=== PATIENT | female | born 2005 | race Caucasian/White ===

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

== ENCOUNTER 2023-02-03 17:25 | Emergency (ER) | payer MEDICAID, SELFPAY ==
[2023-02-03 17:29] VITALS: BP 135/93; PULSE 102; RESP 18; TEMP 36.7; O2SAT 98
--- OUTSIDE RECORDS SUMMARY | 2023-02-03 17:34 | XMS_ITS | Continuity of Care Document ---
Author Name Unknown Organization [facility] Address [address] [place] [id number] Encounter [facility] NBR [id number] Date(s): 01/19/23 - 01/19/[address] [address]- Encounter Diagnosis Viral pharyngitis(Discharge Diagnosis) - 01/19/23 Discharge Disposition: Home or Self Care Attending Physician: Elizabeth Haider MD Admitting Physician: Elizabeth Haider MD Allergies, Adverse Reactions, Alerts Substance Reaction Severity Status amoxicillin Moderate Active Functional Status 01/19/23 Other exposure to Infectious Disease COV ID-19 Symptoms Present Medications No Known Medications Mental Status 01/19/23 Eye Opening Response Nino Spontaneous ly Best Verbal Response Nino Oriented Best Motor Response Nino Obeys comman ds Nino Coma Score 15 Results Laboratory List Name Date Strep A ([facility]) 01/19/23 SARS-CoV-2 (Covid-19) AG ([facility]) POCT Most recent to oldest [Reference Range]: 1 Streptococcus A -[facility] [Not Detected ] Not Detected (01/19/23 9:26 PM) SARS-CoV or CoV-2 (COVID-19) Ag ([facility]) [Negative] Negative (01/19/23 8:07 PM) Employed in healthcare? Unknown *NA* (01/19/23 8:07 PM) Symptomatic as defined by CDC? Unknown *NA* (01/19/23 8:07 PM) Date of onset (Lab) Unknown *NA* (01/19/23 8:07 PM) Hospitalized due to COVID-19? Unknown *NA* (01/19/23 8:07 PM) In ICU? Unknown *NA* (01/19/23 8:07 PM) Group care resident? Unknown *NA* (01/19/23 8:07 PM) status? Unknown *NA* (01/19/23 8:07 PM) Vital Signs Most recent to oldest [Reference Range]: 1 Temperature Temporal Artery [36-38 Deg C ] 36.0 Deg C (01/19/23 9:00 PM) Peripheral Pulse Rate [60-100 bpm] 85 bp m (01/19/23 9:00 PM) Respiratory Rate [12-24 br/min] 20 br/mi n (01/19/23 9:00 PM) Blood Pressure [90-140/60-90 mmHg] 128/8 8mmHg (01/19/23 9:00 PM) Weight Dosing 83.91 kg (01/19/23 9:18 PM) Weight Estimated 83.91 kg (01/19/23 9:00 PM) Height/Length Dosing 160.000 cm (01/19/23 9:18 PM) Height/Length Estimated 160.000 cm (01/19/23 9:00 PM) Social History Social History Type Response Tobacco Never tobacco user T obacco Use:. Sex Hospital Discharge Instructions Patient Education 01/19/2023 21:28:02 Pharyngitis Pharyngitis Pharyngitis is inflammation of the throat (pharynx). It is a very common cause of sore throat. Pharyngitis can be caused by a bacteria, but it is usually caused by a virus. Most cases of pharyngitis get better on their own without treatment. What are the causes? This condition may be caused by: ??? Infection by viruses (viral). Viral pharyngitis spreads easily from person to person (is contagious) through coughing, sneezing, and sharing of personal items or utensils such as cups, forks, spoons, and toothbrushes. ??? Infection by bacteria (bacterial). Bacterial pharyngitis may be spread by touching the nose or face after coming in contact with the bacteria, or through close contact, such as kissing. ??? Allergies. Allergies can cause buildup of mucus in the throat (post-nasal drip), leading to inflammation and irritation. Allergies can also cause blocked nasal passages, forcing breathing throughthe mouth, which dries and irritates the throat. What increases the risk? You are more likely to develop this condition if: ??? You are 5???24 years old. ??? You are exposed to crowded environments such as daycare, school, or dormitory living. ??? You live in a cold climate. ??? You have a weakened disease-fighting (immune) system. What are the signs or symptoms? Symptoms of this condition vary by the cause. Common symptoms of this condition include: ??? Sore throat. ??? Fatigue. ??? Low-grade fever. ??? Stuffy nose (nasal congestion) and cough. ??? Headache. Other symptoms may include: ??? Glands in the neck (lymph nodes) that are swollen. ??? Skin rashes. ??? Plaque-like film on the throat or tonsils. This is often a symptom of bacterial pharyngitis. ??? Vomiting. ??? Red, itchy eyes (conjunctivitis). ??? Loss of appetite. ??? Joint pain and muscle aches. ??? Enlarged tonsils. How is this diagnosed? This condition may be diagnosed based on your medical history and a physical exam. Your health careprovider will ask you questions about your illness and your symptoms. A swab of your throat may be done to check for bacteria (rapid strep test). Other lab tests may also be done, depending on the suspected cause, but these are rare. How is this treated? Many times, treatment is not needed for this condition. Pharyngitis usually gets better in 3???4 days without treatment. Bacterial pharyngitis may be treated with antibiotic medicines. Follow these instructions at home: Medicines ??? Take uini-kbf-kldqmyb and prescription medicines only as told by your health care provider. ??? If you were prescribed an antibiotic medicine, take it as told by your health care provider. Donot stop taking the antibiotic even if you start to feel better. ??? Use throat sprays to soothe your throat as told by your health care provider. ??? Children can get pharyngitis. Do not give your child aspirin because of the association with Araseli's syndrome. Managing pain To help with pain, try: ??? Sipping warm liquids, such as broth, herbal tea, or warm water. ??? Eating or drinking cold or frozen liquids, such as frozen ice pops. ??? Gargling with a mixture of salt and water 3???4 times a day or as needed. To make salt water, completely dissolve ?1 tsp (3???6 g) of salt in 1 cup (237 mL) of warm water. ??? Sucking on hard candy or throat lozenges. ??? Putting a cool-mist humidifier in your bedroom at night to moisten the air. ??? Sitting in the bathroom with the door closed for 5???10 minutes while you run hot water in the shower. General instructions ??? Do not use any products that contain nicotine or tobacco. These products include cigarettes, chewing tobacco, and vaping devices, such as e-cigarettes. If you need help quitting, ask your health care provider. ??? Rest as told by your health care provider. ??? Drink enough fluid to keep your urine pale yellow. How is this prevented? To help prevent becoming infected or spreading infection: ??? Wash your hands often with soap and water for at least 20 seconds. If soap and water are not available, use hand cryolite recovery operator. ??? Do not touch your eyes, nose, or mouth with unwashed hands, and wash hands after touching theseareas. ??? Do not share cups or eating utensils. ??? Avoid close contact with people who are sick. Contact a health care provider if: ??? You have large, tender lumps in your neck. ??? You have a rash. ??? You cough up green, yellow-brown, or bloody mucus. Get help right away if: ??? Your neck becomes stiff. ??? You drool or are unable to swallow liquids. ??? You cannot drink or take medicines without vomiting. ??? You have severe pain that does not go away, even after you take medicine. ??? You have trouble breathing, and it is not caused by a stuffy nose. ??? You have new pain and swelling in your joints such as the knees, ankles, wrists, or elbows. These symptoms may represent a serious problem that is an emergency. Do not wait to see if the symptoms will go away. Get medical help right away. Call your local emergency services (911 in the [place] Do not drive yourself to the hospital. Summary ??? Pharyngitis is redness, pain, and swelling (inflammation) of the throat (pharynx). ??? While pharyngitis can be caused by a bacteria, the most common causes are viral. ??? Most cases of pharyngitis get better on their own without treatment. ??? Bacterial pharyngitis is treated with antibiotic medicines. This information is not intended to replace advice given to you by your health care provider. Make sure you discuss any questions you have with your health care provider. Document Revised: 01/16/2022 Document Reviewed: 01/16/2022 [employer] Patient Education ?? 2021 [employer] Follow Up Care 01/19/2023 21:00:48 With:primary care physician Address: When:3 to 5 days Emergency department Discharge instructions * Elizabeth Haider MD: PERFORM Event Display: ED Discharge Information Authored Date: [id number] MARISA MELI M :2005 Age:17 years Sex:Female Visit Date:01/19/2023 Discharge Instructions We would like to thank you for allowing us to assist you with your healthcare needs. The following includes patient education materials and information regarding your injury/illness. Diagnosis from Today's Visit Viral pharyngitis Discharge Vitals Temperature??(Temporal Artery) 96.8 ??F (36.0 ??C) Heart Rate??(Peripheral) 85 Respiratory Rate?? 20 Blood Pressure?? 128/88?? Height?? 62.99 in (160.000 cm) Weight??(Estimated) 185.02 lb (83.91 kg) Allergies amoxicillin What to Do Next You Need to Schedule the Following Appointments Follow Up with??primary care physician When:??Within 3 to 5 days You were treated today on an emergency basis; it may be palomino to contact your primary care provider to notify them of your visit today. You may have been referred to your regular doctor or a specialist, please follow up as instructed. If your condition worsens or you can't get in to see the doctor, contact the Emergency Department. Education Materials Pharyngitis Pharyngitis is inflammation of the throat (pharynx). It is a very common cause of sore throat. Pharyngitis can be caused by a bacteria, but it is usually caused by a virus. Most cases of pharyngitis get better on their own without treatment. What are the causes? This condition may be caused by: ? Infection by viruses (viral). Viral pharyngitis spreads easily from person to person (is contagious) through coughing, sneezing, and sharing of personal items or utensils such as cups, forks, spoons,and toothbrushes. ? Infection by bacteria (bacterial). Bacterial pharyngitis may be spread by touching the nose or faceafter coming in contact with the bacteria, or through close contact, such as kissing. ? Allergies. Allergies can cause buildup of mucus in the throat (post-nasal drip), leading to inflammation and irritation. Allergies can also cause blocked nasal passages, forcing breathing through themouth, which dries and irritates the throat. What increases the risk? You are more likely to develop this condition if: ? You are 5???24 years old. ? You are exposed to crowded environments such as daycare, school, or dormitory living. ? You live in a cold climate. ? You have a weakened disease-fighting (immune) system. What are the signs or symptoms? Symptoms of this condition vary by the cause. Common symptoms of this condition include: ? Sore throat. ? Fatigue. ? Low-grade fever. ? Stuffy nose (nasal congestion) and cough. ? Headache. Other symptoms may include: ? Glands in the neck (lymph nodes) that are swollen. ? Skin rashes. ? Plaque-like film on the throat or tonsils. This is often a symptom of bacterial pharyngitis. ? Vomiting. ? Red, itchy eyes (conjunctivitis). ? Loss of appetite. ? Joint pain and muscle aches. ? Enlarged tonsils. How is this diagnosed? This condition may be diagnosed based on your medical history and a physical exam. Your health careprovider will ask you questions about your illness and your symptoms. A swab of your throat may be done to check for bacteria (rapid strep test). Other lab tests may also be done, depending on the suspected cause, but these are rare. How is this treated? Many times, treatment is not needed for this condition. Pharyngitis usually gets better in 3???4 days without treatment. Bacterial pharyngitis may be treated with antibiotic medicines. Follow these instructions at home: Medicines ? Take cczt-whj-xwupkrk and prescription medicines only as told by your health care provider. ? If you were prescribed an antibiotic medicine, take it as told by your health care provider. Do notstop taking the antibiotic even if you start to feel better. ? Use throat sprays to soothe your throat as told by your health care provider. ? Children can get pharyngitis. Do not give your child aspirin because of the association with Araseli'ssyndrome. Managing pain To help with pain, try: ? Sipping warm liquids, such as broth, herbal tea, or warm water. ? Eating or drinking cold or frozen liquids, such as frozen ice pops. ? Gargling with a mixture of salt and water 3???4 times a day or as needed. To make salt water, completely dissolve ?1 tsp (3???6 g) of salt in 1 cup (237 mL) of warm water. ? Sucking on hard candy or throat lozenges. ? Putting a cool-mist humidifier in your bedroom at night to moisten the air. ? Sitting in the bathroom with the door closed for 5???10 minutes while you run hot water in the shower. General instructions ? Do not use any products that contain nicotine or tobacco. These products include cigarettes, chewing tobacco, and vaping devices, such as e-cigarettes. If you need help quitting, ask your health careprovider. ? Rest as told by your health care provider. ? Drink enough fluid to keep your urine pale yellow. How is this prevented? To help prevent becoming infected or spreading infection: ? Wash your hands often with soap and water for at least 20 seconds. If soap and water are not available, use hand cryolite recovery operator. ? Do not touch your eyes, nose, or mouth with unwashed hands, and wash hands after touching these areas. ? Do not share cups or eating utensils. ? Avoid close contact with people who are sick. Contact a health care provider if: ? You have large, tender lumps in your neck. ? You have a rash. ? You cough up green, yellow-brown, or bloody mucus. Get help right away if: ? Your neck becomes stiff. ? You drool or are unable to swallow liquids. ? You cannot drink or take medicines without vomiting. ? You have severe pain that does not go away, even after you take medicine. ? You have trouble breathing, and it is not caused by a stuffy nose. ? You have new pain and swelling in your joints such as the knees, ankles, wrists, or elbows. These symptoms may represent a serious problem that is an emergency. Do not wait to see if the symptoms will go away. Get medical help right away. Call your local emergency services (911 in the [place] Do not drive yourself to the hospital. Summary ? Pharyngitis is redness, pain, and swelling (inflammation) of the throat (pharynx). ? While pharyngitis can be caused by a bacteria, the most common causes are viral. ? Most cases of pharyngitis get better on their own without treatment. ? Bacterial pharyngitis is treated with antibiotic medicines. This information is not intended to replace advice given to you by your health care provider. Make sure you discuss any questions you have with your health care provider. Document Revised: 01/16/2022 Document Reviewed: 01/16/2022 [employer] Patient Education ?? 2021 [employer] Tests Performed Medications and Immunizations Administered Given ibuprofen, 600 mg, Oral Lab Test Name Test Result Date/Time SARS-CoV or CoV-2 (COVID-19) Ag ([facility]) Negative 01/19/2023 20:07 EDT Employed in healthcare? Unknown 01/19/2023 20:07 EDT Symptomatic as defined by CDC? Unknown 01/19/2023 20:07 EDT Date of onset (Lab) Unknown 01/19/2023 20:07 EDT Hospitalized due to COVID-19? Unknown 01/19/2023 20:07 EDT In ICU? Unknown 01/19/2023 20:07 EDT Group care resident? Unknown 01/19/2023 20:07 EDT status? Unknown 01/19/2023 20:07 EDT Patient/Radiotelephone Operator Signature Patient Name:MELI CUNNINGHAM I have received this information and my questions have been answered. Patient/Radiotelephone Operator Name: Patient/Radiotelephone Operator Signature: Relationship to Patient: Witness Name/Signature: Date: Electronically Signed on: 01/19/2023 22:28 EDTSigned by:GALDINO Patient Care team information Care Team Personnel Name: Elizabeth Haider MD Position: Physician Member Role: ED Physician Address: Address: [address] [place] [address] Name: Ayla George Position: Nurse Member Role: ED Nurse Care Team Related Persons Name: REGINO CUNNINGHAM
--- OUTSIDE RECORDS SUMMARY | 2023-02-03 17:34 | XMS_ITS | Continuity of Care Document ---
Author Name Unknown Organization [facility] Address [address] [place] [id number] Encounter [facility] FIN NBR [id number] Date(s): 10/14/22 - 10/14/[address] [phone] Encounter Diagnosis Ureteral stone(Discharge Diagnosis) - 10/14/22 Discharge Disposition: Home or Self Care Attending Physician: Elizabeth Haider MD Admitting Physician: Elizabeth Haider MD Allergies, Adverse Reactions, Alerts Substance Reaction Severity Status amoxicillin Moderate Active Medications Depo-Provera 0 Refill(s) Start Date: 10/14/22 Status: Ordered Flomax 0.4 mg oral capsule 0.4 mg = 1 cap, Oral, Daily, # 30 cap, 0 Refill(s) Start Date: 10/14/22 Status: Ordered Results Laboratory List Name Date CBC w/o Diff 10/14/22 Comprehensive Metabolic Panel (CMP) 10/03 12/25 Test Urine Qual 10/14/22 Urinalysis Microscopic 10/14/22 Urinalysis with Micro if Indicated and C ulture if Indicated 10/14/22 Most recent to oldest [Reference Range]: 1 WBC [4.8-10.8 K/mcL] 6.3 K/mcL (10/14/22 10:11 AM) RBC [4.20-6.10 Million/mcL] 5.58 Million /mcL (10/14/22 10:11 AM) BUN [8-26 mg/dL] 13 mg/dL (10/14/22 10:11 AM) UA Color [Yellow] Yellow (10/14/22 10:11 AM) UA WBC [0-3] 0-3 (10/14/22 10:11 AM) Glucose Level [74-106 mg/dL] 105 mg/dL (10/14/22 10:11 AM) Potassium Level [3.5-5.1 mmol/L] 3.7 mmo l/L (10/14/22 10:11 AM) MCV [80.0-99.0 fL] 83.0 fL (10/14/22 10 AM) UA Urobilinogen [0.2] 0.2 (10/14/22 10: AM) UA Bili [Negative] Negative (10/14/22 AM) UA Ketones [Negative] Negative (10/14/22 10:11 AM) AST [15-41 IntlUnit/L] 17 IntlUnit/L (10/14/22 10: AM) ALT [14-54 IntlUnit/L] 20 IntlUnit/L (10/14/22 10 AM) MCHC [32.0-36.0 g/dL] 33.0 g/dL (10/14/22: AM) Osmolality [275-295 mOsm/kg] 278 mOsm/kg (10/14/22 10:11 AM) Sodium Level [134-143 mmol/L] 139 mmol/L (10/14/22 10:11 AM) UA RBC [0-3] >=100 *ABN* (10/14/22 AM) UA Leuk Est [Negative] Negative (10/14/22 10:11 AM) UA Nitrite [Negative] Negative (10/14/22: AM) UA Glucose [Negative] Negative (10/14/22 AM) Hct [37.0-52.0 %] 46.3 % (10/14/22 10:11 AM) UA Bacteria [None Seen] None Seen (10/14/22 AM) Calcium Level [8.9-10.3 mg/dL] 9.4 mg/dL (10/14/22 10: AM) Albumin Level [3.5-5.0 g/dL] 4.2 g/dL (10/14/22 AM) Protein Total [6.5-8.1 g/dL] 7.3 g/dL (10/14/22 10:11 AM) UA Protein [Negative] Trace *ABN* (12/12/22 10:11 AM) MCH [27.0-31.0 pg] 27.4 pg (10/14/22 10:11 AM) Bilirubin Total [0.2-1.2 mg/dL] 0.7 mg/d L (10/14/22 10:11 AM) Hgb [12.0-18.0 g/dL] 15.3 g/dL (10/14/22 10:11 AM) Alk Phos [38-130 IntlUnit/L] 46 IntlUnit /L (10/14/22 10:11 AM) UA Blood [Negative] Large *ABN* (10/14/22 10:11 AM) MPV [7.4-10.4 fL] 10.0 fL (10/14/22 10:11 AM) UA Mucous [None Seen] Present *ABN* (10/14/22 10:11 AM) UA Spec Grav >=1.030 *NA* (10/14/22 10:11 AM) Platelets [130-400 K/mcL] 281 K/mcL (10/14/22 10:11 AM) CO2 [22-32 mmol/L] 26 mmol/L (10/14/22 10:11 AM) UA Squam Epithelial [0-3] 4-6 (10/14/22 10:11 AM) UA pH 5.00 *NA* (10/14/22 10:11 AM) eGFR Non-AA 90 *NA* (10/14/22 10:11 AM) eGFR AA 90 *NA* (10/14/22 10:11 AM) UA Appear [Clear] Slightly Cloudy *ABN* (10/14/22 10:11 AM) Chloride Level [98-111 mmol/L] 104 mmol/ L (10/14/22 10:11 AM) RDW-CV [11.5-14.5 %] 12.5 % (10/14/22 10:11 AM) A/G Ratio 1.4 *NA* (10/14/22 10:11 AM) BUN/Creat Ratio [8.0-20.0] 13.8 (10/14/22 10:11 AM) Globulin 3.1 *NA* (10/14/22 10:11 AM) UA Culture Ind?. [No] No (10/14/22 10:11 AM) Urine Srce Clean Catch (10/14/22 10:11 AM) Creatinine Level [0.44-1.00 mg/dL] 0.94 mg/dL (10/14/22 10:11 AM) Anion Gap [3.0-12.0] 9.0 (10/14/22 10:11 AM) U hCG Ql [Negative] Negative (10/14/22 10:11 AM) Radiology Reports * Exam Date Time Procedure Performing Provider Status 10/14/22 11:[address] Abdomen and Pelvi s w/o Contrast Vera Rainey; Auth (Verified) Notes: (CT Abdomen and Pelvis w/o Contrast) Reason For Exam: left flank pain CT Abdomen and Pelvis w/o Contrast EXAM DESCRIPTION: CT Abdomen and Pelvis w/o Contrast 10/14/2022 INDICATION: LEFT FLANK PAIN TECHNIQUE: All CT scans at this facility use at least one of these dose optimization techniques: Automated exposure control; mA and/or kV adjustment per patient size (includes targeted exams where dose is matched to clinical indication); or iterative reconstruction. Technique: Axial CT images of the abdomen/pelvis without IV contrast administration COMPARISON: None FINDINGS: Visualized portions of the liver, spleen, pancreas and adrenal glands demonstrate a normal unenhanced CT appearance. No calcified gallstones in the gallbladder. Small obstructing calculus in the distal left ureter just proximal to the UVJ measuring approximately 2.8 mm in diameter with mild left hydronephrosis. No renal calculi on either side. No right hydronephrosis or obstructing right ureteral calculus. Normal caliber abdominal aorta. No retroperitoneal adenopathy in the abdomen or pelvis. No pelvic mass identified. No bowel dilatation to suggest obstruction or ileus. No free intraperitoneal air, ascites or inflammatory changes. Normal appendix. The visualized lung bases are clear. No suspicious regional osseous lesions. IMPRESSION: Obstructing calculus in the distal left ureter just proximal to the UVJ measuring approximately 2.8 mm in diameter with mild left hydronephrosis. JOB #: [id number] Final Signed by: Nicholas Hamm MD Signed (Electronic Signature): 10/14/2022 11:14 am Vital Signs Most recent to oldest [Reference Range]: 1 2 Temperature Temporal Artery [36-38 Deg C ] 36.4 Deg C (10/14/22 11:00 AM) 35.9 Deg C *LOW* (10/14/22 9:35 AM) Peripheral Pulse Rate [60-100 bpm] 66 bp m (10/14/22 11:00 AM) 76 bpm (10/14/22 9:35 AM) Respiratory Rate [12-24 br/min] 18 br/mi n (10/14/22 11:00 AM) 18 br/min (10/14/22 9:35 AM) Blood Pressure [90-140/60-90 mmHg] 125/8 0mmHg (10/14/22 11:00 AM) 142/62mmHg *HI* (10/14/22 9:35 AM) Weight Dosing 77.11 kg (10/14/22 9:55 AM) Weight Estimated 77.11 kg (10/14/22 9:35 AM) Height/Length Dosing 160.000 cm (10/14/22 9:55 AM) Height/Length Estimated 160.000 cm (10/14/22 9:35 AM) Social History Social History Type Response Tobacco Never tobacco user T obacco Use:. Sex Hospital Discharge Instructions Patient Education 10/14/2022 10:22:25 Kidney Stones Kidney Stones Kidney stones are solid, rock-like deposits that form inside of the kidneys. The kidneys are a pairof organs that make urine. A kidney stone may form in a kidney and move into other parts of the urinary tract, including the tubes that connect the kidneys to the bladder (ureters), the bladder, and the tube that carries urine out of the body (urethra). As the stone moves through these areas, it can cause intense pain and block the flow of urine. Kidney stones are created when high levels of certain minerals are found in the urine. The stones are usually passed out of the body through urination, but in some cases, medical treatment may be needed to remove them. What are the causes? Kidney stones may be caused by: ??? A condition in which certain glands produce too much parathyroid hormone (primary hyperparathyroidism), which causes too much calcium buildup in the blood. ??? A buildup of uric acid crystals in the bladder (hyperuricosuria). Uric acid is a chemical that the body produces when you eat certain foods. It usually exits the body in the urine. ??? Narrowing (stricture) of one or both of the ureters. ??? A kidney blockage that is present at (congenital obstruction). ??? Past surgery on the kidney or the ureters, such as gastric bypass surgery. What increases the risk? The following factors may make you more likely to develop this condition: ??? Having had a kidney stone in the past. ??? Having a family history of kidney stones. ??? Not drinking enough water. ??? Eating a diet that is high in protein, salt (sodium), or sugar. ??? Being overweight or obese. What are the signs or symptoms? Symptoms of a kidney stone may include: ??? Pain in the side of the abdomen, right below the ribs (flank pain). Pain usually spreads (radiates) to the groin. ??? Needing to urinate frequently or urgently. ??? Painful urination. ??? Blood in the urine (hematuria). ??? Nausea. ??? Vomiting. ??? Fever and chills. How is this diagnosed? This condition may be diagnosed based on: ??? Your symptoms and medical history. ??? A physical exam. ??? Blood tests. ??? Urine tests. These may be done before and after the stone passes out of your body through urination. ??? Imaging tests, such as a CT scan, abdominal X-ray, or ultrasound. ??? A procedure to examine the inside of the bladder (cystoscopy). How is this treated? Treatment for kidney stones depends on the size, location, and makeup of the stones. Kidney stones will often pass out of the body through urination. You may need to: ??? Increase your fluid intake to help pass the stone. In some cases, you may be given fluids through an IV and may need to be monitored at the hospital. ??? Take medicine for pain. ??? Make changes in your diet to help prevent kidney stones from coming back. Sometimes, medical procedures are needed to remove a kidney stone. This may involve: ??? A procedure to break up kidney stones using: ??? A focused beam of light (laser therapy). ??? Shock waves (extracorporeal shock wave lithotripsy). ??? Surgery to remove kidney stones. This may be needed if you have severe pain or have stones thatblock your urinary tract. Follow these instructions at home: Medicines ??? Take [id number] and prescription medicines only as told by your health care provider. ??? Ask your health care provider if the medicine prescribed to you requires you to avoid driving or using heavy machinery. Eating and drinking ??? Drink enough fluid to keep your urine pale yellow. You may be instructed to drink at least 8???10 glasses of water each day. This will help you pass the kidney stone. ??? If directed, change your diet. This may include: ??? Limiting how much sodium you eat. ??? Eating more fruits and vegetables. ??? Limiting how much animal protein???such as red meat, poultry, fish, and eggs???you eat. ??? Follow instructions from your health care provider about eating or drinking restrictions. General instructions ??? Collect urine samples as told by your health care provider. You may need to collect a urine sample: ??? 24 hours after you pass the stone. ??? 8???12 weeks after passing the kidney stone, and every 6???12 months after that. ??? Strain your urine every time you urinate, for as long as directed. Use the strainer that your health care provider recommends. ??? Do not throw out the kidney stone after passing it. Keep the stone so it can be tested by your health care provider. Testing the makeup of your kidney stone may help prevent you from getting kidney stones in the future. ??? Keep all follow-up visits as told by your health care provider. This is important. You may needfollow-up X-rays or ultrasounds to make sure that your stone has passed. How is this prevented? To prevent another kidney stone: ??? Drink enough fluid to keep your urine pale yellow. This is the best way to prevent kidney stones. ??? Eat a healthy diet and follow recommendations from your health care provider about foods to avoid. You may be instructed to eat a low-protein diet. Recommendations vary depending on the type of kidney stone that you have. ??? Maintain a healthy weight. Where to find more information ??? National Kidney Foundation (NKF): www.kidney.org ??? [employer] (UCF): www.urologyhealth.org Contact a health care provider if: ??? You have pain that gets worse or does not get better with medicine. Get help right away if: ??? You have a fever or chills. ??? You develop severe pain. ??? You develop new abdominal pain. ??? You faint. ??? You are unable to urinate. Summary ??? Kidney stones are solid, rock-like deposits that form inside of the kidneys. ??? Kidney stones can cause nausea, vomiting, blood in the urine, abdominal pain, and the urge to urinate frequently. ??? Treatment for kidney stones depends on the size, location, and makeup of the stones. Kidney stones will often pass out of the body through urination. ??? Kidney stones can be prevented by drinking enough fluids, eating a healthy diet, and maintaining a healthy weight. This information is not intended to replace advice given to you by your health care provider. Make sure you discuss any questions you have with your health care provider. Document Revised: 03/03/2020 Document Reviewed: 03/07/2020 [email or web address] Patient Education ?? 2021 [employer]. Follow Up Care 10/14/2022 09:35:09 With:Soledad Orlando MD Address: [address] [place] [id number] When:1 week Discharge instructions * Event Display: Discharge Instructions Physician Emergency department Note * Elizabeth Haider MD: PERFORM Event Display: ED Note Physician Authored Date: [id number] MELI CUNNINGHAM :2005 Age:17 years Sex:Female Visit Date:10/14/2022 Basic Information Time Seen: Elizabeth Haider MD / 10/14/2022 09:50 Chief Complaint left side pain for 4-5 days. ??Left flank pain with some radiation. ??On BCP unsure of LMP. constant pain History Of Present Illness: This patient is a 17-year-old female presents today for evaluation of left side pain. ??The patient??states that for 5 days ago she began to get some left flank??pain which radiates slightly into theleft upper abdomen. ??She states that??it is a constant sharp pain which is waxing and waning. ??Itwas worse this morning.?? The patient states that movement and??leaning onto the left side make thepain worse, it is better when she leans towards the right.?? Patient is not a previous episodes of this pain.?? She does not have any associated fever, chills, nausea or vomiting. ??No dysuria or increased frequency.?? No prior history of ureteral stones.?? No shortness of breath or lower extremityswelling. Review of Systems: CONSTITUTIONAL:??No fevers or chills. EYES:??No change in vision. ENT:??No sore throat. ??No headache. ??No neck pain. CARDIOVASCULAR:??No chest pain, palpitations or passing out episodes. RESPIRATORY:??No cough, shortness of breath or hemoptysis. GI:??No abdominal pain. No nausea, vomiting or diarrhea. :??No change in urination. ??Flank pain. SKIN:??No rash. NEUROLOGIC:??No numbness or weakness. MUSCULOSKELETAL:??No swelling or pain. PSYCHIATRIC:??No depression. LYMPH:??No swelling. Review of systems otherwise as stated in HPI Physical Exam Vitals & Measurements T:??36.4?C ??(Temporal Artery)?? HR:??66??(Peripheral)?? RR:??18?? BP:??125/80?? SpO2:??99%?? HT:??160.000??cm?? WT:??77.11??kg??(Estimated)?? Pain Score:??2?? General: ??AAOx3. ??GCS15. ??No acute distress, answering questions appropriately.?? Overweight female. Head: ??Atraumatic; Normocephalic Eye: ??PERRLA; EOMI; no scleral icterus / pallor ENT: moist mucous membranes; no epistaxis. No stridor. Neck: ??Active ROM intact. ??No meningismus appreciated. Skin: Warm, dry Chest: ??Equal BS bilaterally. ??Clear to auscultation bilaterally. Heart: RRR; no murmur, rub, or gallop Abdomen: ??Soft, mild tenderness to palpation to the left upper quadrant and left CVA, non-distended, no guarding, rebound, or rigidity. No Hepatosplenomegaly Musculoskeletal: ??ROM intact of all extremities/joints without discomfort. ??Sensation grossly intact throughout. ??No obvious deformity. ??Strength Intact 5/5 throughout. ?? Neuro: Alert and oriented. Answering questions appropriately with clear speech. Motor and sensory grossly normal in all extremities.?? Medical Decision Making: Patient is a 17-year-old female presents with left flank and abdominal discomfort.?? On exam there is very minimal tenderness to palpation in these areas and no rash was appreciated.?? She has no complaints of dyspnea or lower extremity swelling to suggest PE. CT scan of the abdomen pelvis shows an obstructing calculus in the distal left ureter proximal to the UVJ measuring 2.8 mm with some mild left hydronephrosis.?? Patient CBC and CMP were unremarkable.?? She is not .?? Urinalysis showed evidence of hematuria but no infection.?? Patient declined any pain medications while she was here in the emergency department.?? She feels comfortable plan for discharge home.?? I will give her a prescription for Flomax and have her follow-up with urology outpatient. Procedure No Qualifying Data Assessment/Plan 1.??Ureteral stone??N20.1 Ordered: Flomax 0.4 mg oral capsule, 0.4 mg = 1 cap, Oral, Daily, # 30 cap, 0 Refill(s) ?? Orders: Discharge Patient, 10/14/22 11:24:00 EST Patient Education Kidney Stones Follow Up With When Contact Information Soledad Orlando MD Within [address] [place] [phone] Additional Instructions: Medication Reconciliation New Prescription tamsulosin (Flomax 0.4 mg oral capsule)1 Capsules Oral (given by mouth) every day. Refills: 0. ?? Unchanged medroxyPROGESTERone (Depo-Provera) Problem List/Past Medical History Ongoing No qualifying data Historical No qualifying data Allergies amoxicillin Social History Electronic Cigarette/Vaping Electronic Cigarette Use: Never. Tobacco Never tobacco user Tobacco Use:. Diagnostic Results CT Abdomen and Pelvis w/o Contrast 10/14/2022 11:[address] Abdomen and Pelvis w/o Contrast ?? 10/14/22 11:14:03 EXAM DESCRIPTION: CT Abdomen and Pelvis w/o Contrast ?? 10/14/2022 ?? INDICATION: LEFT FLANK PAIN ?? TECHNIQUE: All CT scans at this facility use at least one of these dose optimization techniques: Automated exposure control; mA and/or kV adjustment per patient size (includes targeted exams where dose is matched to clinical indication); or iterative reconstruction. ?? Technique: Axial CT images of the abdomen/pelvis without IV contrast administration ?? COMPARISON: None ?? FINDINGS: Visualized portions of the liver, spleen, pancreas and adrenal glands demonstrate a normal unenhanced CT appearance. ?? No calcified gallstones in the gallbladder. ?? Small obstructing calculus in the distal left ureter just proximal to the UVJ measuring approximately 2.8 mm in diameter with mild left hydronephrosis. No renal calculi on either side. No right hydronephrosis or obstructing right ureteral calculus. ?? Normal caliber abdominal aorta. No retroperitoneal adenopathy in the abdomen or pelvis. No pelvic mass identified. ?? No bowel dilatation to suggest obstruction or ileus. No free intraperitoneal air, ascites or inflammatory changes. Normal appendix. ?? The visualized lung bases are clear. No suspicious regional osseous lesions. ?? IMPRESSION: Obstructing calculus in the distal left ureter just proximal to the UVJ measuring approximately 2.8 mm in diameter with mild left hydronephrosis. ? JOB #: [id number] Electronically Signed By: ?? Signed By: Nicholas Hamm MD Lab Results CBC and Differential?? LATEST RESULTS?? WBC?? 10/14/22 10:11?? 6.3?? RBC?? 10/14/22 10:11?? 5.58?? Hgb?? 10/14/22 10:11?? 15.3?? Hct?? 10/14/22 10:11?? 46.3?? MCV?? 10/14/22 10:11?? 83.0?? MCH?? 10/14/22 10:11?? 27.4?? MCHC?? 10/14/22 10:11?? 33.0?? RDW-CV?? 10/14/22 10:11?? 12.5?? Platelets?? 10/14/22 10:11?? 281?? MPV?? 10/14/22 10:11?? 10.0? Routine Chemistry?? LATEST RESULTS?? Sodium Level?? 10/14/22 10:11?? 139?? Potassium Level?? 10/14/22 10:11?? 3.7?? Chloride Level?? 10/14/22 10:11?? 104?? CO2?? 10/14/22 10:11?? 26?? Alk Phos?? 10/14/22 10:11?? 46?? AST?? 10/14/22 10:11?? 17?? ALT?? 10/14/22 10:11?? 20?? BUN?? 10/14/22 10:11?? 13?? Glucose Level?? 10/14/22 10:11?? 105?? Creatinine Level?? 10/14/22 10:11?? 0.94?? BUN/Creat Ratio?? 10/14/22 10:11?? 13.8?? eGFR AA?? 10/14/22 10:11?? 90?? eGFR Non-AA?? 10/14/22 10:11?? 90?? Calcium Level?? 10/14/22 10:11?? 9.4?? Protein Total?? 10/14/22 10:11?? 7.3?? Albumin Level?? 10/14/22 10:11?? 4.2?? Globulin?? 10/14/22 10:11?? 3.1?? A/G Ratio?? 10/14/22 10:11?? 1.4?? Bilirubin Total?? 10/14/22 10:11?? 0.7?? Anion Gap?? 10/14/22 10:11?? 9.0?? Osmolality?? 10/14/22 10:11?? 278? Testing?? LATEST RESULTS?? U hCG Ql?? 10/14/22 10:11?? Negative? UA Macroscopic?? LATEST RESULTS?? Urine Srce?? 10/14/22 10:11?? Clean Catch?? UA Color?? 10/14/22 10:11?? Yellow?? UA Appear?? 10/14/22 10:11?? Slightly Cloudy Abnormal?? UA Glucose?? 10/14/22 10:11?? Negative?? UA Bili?? 10/14/22 10:11?? Negative?? UA Ketones?? 10/14/22 10:11?? Negative?? UA Spec Grav?? 10/14/22 10:11?? >=1.030?? UA Blood?? 10/14/22 10:11?? Large Abnormal?? UA pH?? 10/14/22 10:11?? 5.00?? UA Protein?? 10/14/22 10:11?? Trace Abnormal?? UA Urobilinogen?? 10/14/22 10:11?? 0.2?? UA Nitrite?? 10/14/22 10:11?? Negative?? UA Leuk Est?? 10/14/22 10:11?? Negative?? UA Culture Ind?.?? 10/14/22 10:11?? No? UA Microscopic?? LATEST RESULTS?? UA WBC?? 10/14/22 10:11?? 0-3?? UA RBC?? 10/14/22 10:11?? >=100 Abnormal?? UA Squam Epithelial?? 10/14/22 10:11?? 4-6?? UA Mucous?? 10/14/22 10:11?? Present Abnormal?? UA Bacteria?? 10/14/22 10:11?? None Seen? Electronically Signed on 10/14/22 03:53 PM Elizabeth Haider MD Emergency department Discharge instructions * Elizabeth Haider MD: PERFORM Event Display: ED Discharge Information Authored Date: [id number] MELI CUNNINGHAM :2005 Age:17 years Sex:Female Visit Date:10/14/2022 Discharge Instructions We would like to thank you for allowing us to assist you with your healthcare needs. The following includes patient education materials and information regarding your injury/illness. Diagnosis from Today's Visit Ureteral stone Discharge Vitals Temperature??(Temporal Artery) 97.5 ??F (36.4 ??C) Heart Rate??(Peripheral) 66 Respiratory Rate?? 18 Blood Pressure?? 125/80?? Height?? 62.99 in (160.000 cm) Weight??(Estimated) 170.03 lb (77.11 kg) Allergies amoxicillin What to Do Next You Need to Schedule the Following Appointments Follow Up with??Soledad Orlando MD When:??Within 1 week Where: [address] [place] [phone] You were treated today on an emergency basis; it may be palomino to contact your primary care provider to notify them of your visit today. You may have been referred to your regular doctor or a specialist, please follow up as instructed. If your condition worsens or you can't get in to see the doctor, contact the Emergency Department. Medications What How Much When Why Instructions Next Dose New tamsulosin (Flomax 0.4 mg oral capsule) 1 Capsules Oral (given by mouth) Every day Ureteral stone Printed Prescription Unchanged medroxyPROGESTERone (Depo-Provera) Education Materials Kidney Stones Kidney stones are solid, rock-like deposits that form inside of the kidneys. The kidneys are a pairof organs that make urine. A kidney stone may form in a kidney and move into other parts of the urinary tract, including the tubes that connect the kidneys to the bladder (ureters), the bladder, and the tube that carries urine out of the body (urethra). As the stone moves through these areas, it can cause intense pain and block the flow of urine. Kidney stones are created when high levels of certain minerals are found in the urine. The stones are usually passed out of the body through urination, but in some cases, medical treatment may be needed to remove them. What are the causes? Kidney stones may be caused by: ? A condition in which certain glands produce too much parathyroid hormone (primary hyperparathyroidism), which causes too much calcium buildup in the blood. ? A buildup of uric acid crystals in the bladder (hyperuricosuria). Uric acid is a chemical that the body produces when you eat certain foods. It usually exits the body in the urine. ? Narrowing (stricture) of one or both of the ureters. ? A kidney blockage that is present at (congenital obstruction). ? Past surgery on the kidney or the ureters, such as gastric bypass surgery. What increases the risk? The following factors may make you more likely to develop this condition: ? Having had a kidney stone in the past. ? Having a family history of kidney stones. ? Not drinking enough water. ? Eating a diet that is high in protein, salt (sodium), or sugar. ? Being overweight or obese. What are the signs or symptoms? Symptoms of a kidney stone may include: ? Pain in the side of the abdomen, right below the ribs (flank pain). Pain usually spreads (radiates)to the groin. ? Needing to urinate frequently or urgently. ? Painful urination. ? Blood in the urine (hematuria). ? Nausea. ? Vomiting. ? Fever and chills. How is this diagnosed? This condition may be diagnosed based on: ? Your symptoms and medical history. ? A physical exam. ? Blood tests. ? Urine tests. These may be done before and after the stone passes out of your body through urination. ? Imaging tests, such as a CT scan, abdominal X-ray, or ultrasound. ? A procedure to examine the inside of the bladder (cystoscopy). How is this treated? Treatment for kidney stones depends on the size, location, and makeup of the stones. Kidney stones will often pass out of the body through urination. You may need to: ? Increase your fluid intake to help pass the stone. In some cases, you may be given fluids through an IV and may need to be monitored at the hospital. ? Take medicine for pain. ? Make changes in your diet to help prevent kidney stones from coming back. Sometimes, medical procedures are needed to remove a kidney stone. This may involve: ? A procedure to break up kidney stones using: ? A focused beam of light (laser therapy). ? Shock waves (extracorporeal shock wave lithotripsy). ? Surgery to remove kidney stones. This may be needed if you have severe pain or have stones that block your urinary tract. Follow these instructions at home: Medicines ? Take [id number] and prescription medicines only as told by your health care provider. ? Ask your health care provider if the medicine prescribed to you requires you to avoid driving or using heavy machinery. Eating and drinking ? Drink enough fluid to keep your urine pale yellow. You may be instructed to drink at least 8???10 glasses of water each day. This will help you pass the kidney stone. ? If directed, change your diet. This may include: ? Limiting how much sodium you eat. ? Eating more fruits and vegetables. ? Limiting how much animal protein???such as red meat, poultry, fish, and eggs???you eat. ? Follow instructions from your health care provider about eating or drinking restrictions. General instructions ? Collect urine samples as told by your health care provider. You may need to collect a urine sample: ? 24 hours after you pass the stone. ? 8???12 weeks after passing the kidney stone, and every 6???12 months after that. ? Strain your urine every time you urinate, for as long as directed. Use the strainer that your health care provider recommends. ? Do not throw out the kidney stone after passing it. Keep the stone so it can be tested by your health care provider. Testing the makeup of your kidney stone may help prevent you from getting kidney stones in the future. ? Keep all follow-up visits as told by your health care provider. This is important. You may need follow-up X-rays or ultrasounds to make sure that your stone has passed. How is this prevented? To prevent another kidney stone: ? Drink enough fluid to keep your urine pale yellow. This is the best way to prevent kidney stones. ? Eat a healthy diet and follow recommendations from your health care provider about foods to avoid. You may be instructed to eat a low-protein diet. Recommendations vary depending on the type of kidney stone that you have. ? Maintain a healthy weight. Where to find more information ? [employer] (NKF): www.kidney.org ? [facility] [facility] (F): www.urologyhealth.org Contact a health care provider if: ? You have pain that gets worse or does not get better with medicine. Get help right away if: ? You have a fever or chills. ? You develop severe pain. ? You develop new abdominal pain. ? You faint. ? You are unable to urinate. Summary ? Kidney stones are solid, rock-like deposits that form inside of the kidneys. ? Kidney stones can cause nausea, vomiting, blood in the urine, abdominal pain, and the urge to urinate frequently. ? Treatment for kidney stones depends on the size, location, and makeup of the stones. Kidney stones will often pass out of the body through urination. ? Kidney stones can be prevented by drinking enough fluids, eating a healthy diet, and maintaining a healthy weight. This information is not intended to replace advice given to you by your health care provider. Make sure you discuss any questions you have with your health care provider. Document Revised: 03/03/2020 Document Reviewed: 03/07/2020 Else[employer] Patient Education ?? 2021 [employer] Tests Performed Radiology CT Abdomen and Pelvis w/o Contrast 10/14/2022 11:16 EST Lab Test Name Test Result Date/Time WBC 6.3 K/mcL 10/14/2022 10:11 EST RBC 5.58 Million/mcL 10/14/2022 10:11 EST Hgb 15.3 g/dL 10/14/2022 10:11 EST Hct 46.3 % 10/14/2022 10:11 EST MCV 83.0 fL 10/14/2022 10:11 EST MCH 27.4 pg 10/14/2022 10:11 EST MCHC 33.0 g/dL 10/14/2022 10:11 EST RDW-CV 12.5 % 10/14/2022 10:11 EST Platelets 281 K/mcL 10/14/2022 10:11 EST MPV 10.0 fL 10/14/2022 10:11 EST Sodium Level 139 mmol/L 10/14/2022 10:11 EST Potassium Level 3.7 mmol/L 10/14/2022 10:11 EST Chloride Level 104 mmol/L 10/14/2022 10:11 EST CO2 26 mmol/L 10/14/2022 10:11 EST Alk Phos 46 IntlUnit/L 10/14/2022 10:11 EST AST 17 IntlUnit/L 10/14/2022 10:11 EST ALT 20 IntlUnit/L 10/14/2022 10:11 EST BUN 13 mg/dL 10/14/2022 10:11 EST Glucose Level 105 mg/dL 10/14/2022 10:11 EST Creatinine Level 0.94 mg/dL 10/14/2022 10:11 EST BUN/Creat Ratio 13.8 10/14/2022 10:11 EST eGFR AA 90 10/14/2022 10:11 EST eGFR Non-AA 90 10/14/2022 10:11 EST Calcium Level 9.4 mg/dL 10/14/2022 10:11 EST Protein Total 7.3 g/dL 10/14/2022 10:11 EST Albumin Level 4.2 g/dL 10/14/2022 10:11 EST Globulin 3.1 10/14/2022 10:11 EST A/G Ratio 1.4 10/14/2022 10:11 EST Bilirubin Total 0.7 mg/dL 10/14/2022 10:11 EST Anion Gap 9.0 10/14/2022 10:11 EST Osmolality 278 mOsm/kg 10/14/2022 10:11 EST U hCG Ql Negative 10/14/2022 10:11 EST Urine Srce Clean Catch 10/14/2022 10:11 EST UA Color YELLOW. 10/14/2022 10:11 EST UA Appear SL CLOUDY 10/14/2022 10:11 EST UA Glucose NEGATIVE 10/14/2022 10:11 EST UA Bili NEGATIVE 10/14/2022 10:11 EST UA Ketones NEGATIVE 10/14/2022 10:11 EST UA Spec Grav >=1.030 10/14/2022 10:11 EST UA Blood LARGE Clinitek 10/14/2022 10:11 EST UA pH 5.00 10/14/2022 10:11 EST UA Protein TRACE 10/14/2022 10:11 EST UA Urobilinogen 0.2 10/14/2022 10:11 EST UA Nitrite NEGATIVE 10/14/2022 10:11 EST UA Leuk Est NEGATIVE 10/14/2022 10:11 EST UA Culture Ind?. 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 Technique: Axial CT images of the abdomen/pelvis without IV contrast administration COMPARISON: None FINDINGS: Visualized portions of the liver, spleen, pancreas and adrenal glands demonstrate a normal unenhanced CT appearance. No calcified gallstones in the gallbladder. Small obstructing calculus in the distal left ureter just proximal to the UVJ measuring approximately 2.8 mm in diameter with mild left hydronephrosis. No renal calculi on either side. No right hydronephrosis or obstructing right ureteral calculus. Normal caliber abdominal aorta. No retroperitoneal adenopathy in the abdomen or pelvis. No pelvic mass identified. No bowel dilatation to suggest obstruction or ileus. No free intraperitoneal air, ascites or inflammatory changes. Normal appendix. The visualized lung bases are clear. No suspicious regional osseous lesions. IMPRESSION: Obstructing calculus in the distal left ureter just proximal to the UVJ measuring approximately 2.8 mm in diameter with mild left hydronephrosis. JOB #: [id number] Final Signed by: Nicholas Hamm MD Signed (Electronic Signature): 10/14/2022 11:14 am
--- OUTSIDE RECORDS SUMMARY | 2023-02-03 17:34 | XMS_ITS | Continuity of Care Document ---
Author Name Unknown Organization [facility] Ambulatory Clinics Address [address] [place] [address] Encounter [facility] FIN NBR [id number] Date(s): 01/28/23 - 01/28/23 [facility] Ambulatory Clinics [address] [place], [place] [address] Encounter Diagnosis Upper respiratory virus(Discharge Diagnosis) - 01/28/23 Discharge Disposition: Home or Self Care Allergies, Adverse Reactions, Alerts Substance Reaction Severity Status amoxicillin Moderate Active Functional Status 01/28/23 Other exposure to Infectious Disease Non e Medications azithromycin 250 mg oral tablet See Instruction, Oral, Daily, take 2 tabs on day 1 and 1 tabs on day 2-5, # 6 tab, 0 Refill(s), Pharmacy: [id number], 160, cm, 01/19/23 21:18:00 EDT, Height/Length Dosing, 83.91, kg, 01/19/23 21:18:00 EDT, Weight Dosing Start Date: 01/28/23 Status: Ordered ProAir HFA 90 mcg/inh inhalation aerosol 1 puffs, Inhale, QID, PRN as needed for wheezing, # 8.5 g, 0 Refill(s), Pharmacy: [id number], 160, cm, 01/19/23 21:18:00 EDT, Height/Length Dosing, 83.91, kg, 01/19/23 21:18:00 EDT, WeightDosing Start Date: 01/28/23 Status: Ordered Vital Signs Most recent to oldest [Reference Range]: 1 Temperature Tympanic [36.6-37.9 Deg C] 3 6.1 Deg C *LOW* (01/28/23 6:43 PM) Peripheral Pulse Rate [60-100 bpm] 77 bp m (01/28/23 6:43 PM) Blood Pressure [90-140/60-90 mmHg] 136/9 1mmHg (01/28/23 6:43 PM) Weight 84.82 kg (01/28/23 6:43 PM) Weight Measured (lbs) 186.996 lb (01/28/23 6:43 PM) Height 160.02 cm (01/28/23 6:43 PM) Height/Length Measured (inches) 63 inch (01/28/23 6:43 PM) BSA Measured 1.94 m2 (01/28/23 6:43 PM) Body Mass Index 33.12 kg/m2 (01/28/23 6:43 PM) Body Mass Index Percentile 96.03 1 (01/28/23 6:43 PM) Height/Length Percentile 30.45 2 (01/28/23 6:43 PM) Weight Percentile 95.75 3 (01/28/23 6:43 PM) 1Result Comment: ^~:!Percentile Source -CDC 2Result Comment: ^~:!Percentile Source -CDC 3Result Comment: ^~:!Percentile Source -[facility] Social History Social History Type Response Tobacco Never tobacco user T obacco Use:. Sex Hospital Discharge Instructions Patient Education 01/28/2023 17:56:05 Upper Respiratory Infection, Adult Upper Respiratory Infection, Adult An upper respiratory infection (URI) is a common viral infection of the nose, throat, and upper airpassages that lead to the lungs. The most common type of URI is the common cold. URIs usually get better on their own, without medical treatment. What are the causes? A URI is caused by a virus. You may catch a virus by: ??? Breathing in droplets from an infected person's cough or sneeze. ??? Touching something that has been exposed to the virus (contaminated) and then touching your mouth, nose, or eyes. What increases the risk? You are more likely to get a URI if: ??? You are very young or very old. ??? It is karyn or winter. ??? You have close contact with others, such as at a daycare, school, or health care facility. ??? You smoke. ??? You have long-term (chronic) heart or lung disease. ??? You have a weakened disease-fighting (immune) system. ??? You have nasal allergies or asthma. ??? You are experiencing a lot of stress. ??? You work in an area that has poor air circulation. ??? You have poor nutrition. What are the signs or symptoms? A URI usually involves some of the following symptoms: ??? Runny or stuffy (congested) nose. ??? Sneezing. ??? Cough. ??? Sore throat. ??? Headache. ??? Fatigue. ??? Fever. ??? Loss of appetite. ??? Pain in your forehead, behind your eyes, and over your cheekbones (sinus pain). ??? Muscle aches. ??? Redness or irritation of the eyes. ??? Pressure in the ears or face. How is this diagnosed? This condition may be diagnosed based on your medical history and symptoms, and a physical exam. Your health care provider may use a cotton swab to take a mucus sample from your nose (nasal swab). This sample can be tested to determine what virus is causing the illness. How is this treated? URIs usually get better on their own within 7???10 days. You can take steps at home to relieve yoursymptoms. Medicines cannot cure URIs, but your health care provider may recommend certain medicinesto help relieve symptoms, such as: ??? Alew-qwk-bjzrmbl cold medicines. ??? Cough suppressants. Coughing is a type of defense against infection that helps to clear the respiratory system, so take these medicines only as recommended by your health care provider. ??? Fever-reducing medicines. Follow these instructions at home: Activity ??? Rest as needed. ??? If you have a fever, stay home from work or school until your fever is gone or until your health care provider says you are no longer contagious. Your health care provider may have you wear a face mask to prevent your infection from spreading. Relieving symptoms ??? Gargle with a salt-water mixture 3???4 times a day or as needed. To make a salt-water mixture, completely dissolve ?1 tsp of salt in 1 cup of warm water. ??? Use a cool-mist humidifier to add moisture to the air. This can help you breathe more easily. Eating and drinking ??? Drink enough fluid to keep your urine pale yellow. ??? Eat soups and other clear broths. General instructions ??? Take mgvh-jgx-tywvcep and prescription medicines only as told by your health care provider. These include cold medicines, fever reducers, and cough suppressants. ??? Do not use any products that contain nicotine or tobacco, such as cigarettes and e-cigarettes. If you need help quitting, ask your health care provider. ??? Stay away from secondhand smoke. ??? Stay up to date on all immunizations, including the yearly (annual) flu vaccine. ??? Keep all follow-up visits as told by your health care provider. This is important. How to prevent the spread of infection to others ??? URIs can be passed from person to person (are contagious). To prevent the infection from spreading: ??? Wash your hands often with soap and water. If soap and water are not available, use hand desktop support manager. ??? Avoid touching your mouth, face, eyes, or nose. ??? Cough or sneeze into a tissue or your sleeve or elbow instead of into your hand or into the air. Contact a health care provider if: ??? You are getting worse instead of better. ??? You have a fever or chills. ??? Your mucus is brown or red. ??? You have yellow or brown discharge coming from your nose. ??? You have pain in your face, especially when you bend forward. ??? You have swollen neck glands. ??? You have pain while swallowing. ??? You have white areas in the back of your throat. Get help right away if: ??? You have shortness of breath that gets worse. ??? You have severe or persistent: ??? Headache. ??? Ear pain. ??? Sinus pain. ??? Chest pain. ??? You have chronic lung disease along with any of the following: ??? Wheezing. ??? Prolonged cough. ??? Coughing up blood. ??? A change in your usual mucus. ??? You have a stiff neck. ??? You have changes in your: ??? Vision. ??? Hearing. ??? Thinking. ??? Mood. Summary ??? An upper respiratory infection (URI) is a common infection of the nose, throat, and upper air passages that lead to the lungs. ??? A URI is caused by a virus. ??? URIs usually get better on their own within 7???10 days. ??? Medicines cannot cure URIs, but your health care provider may recommend certain medicines to help relieve symptoms. This information is not intended to replace advice given to you by your health care provider. Make sure you discuss any questions you have with your health care provider. Document Revised: 06/28/2021 Document Reviewed: 06/28/2021 [employer] Patient Education ?? 2021 [place]. Physician Outpatient Note * Dawna Swann, [employer] CONSULTANT: PERFORM Event Display: Office Clinic Note Physician Authored Date: [id number] MELI CUNNINGHAM :2005 Age:17 years Sex:Female Visit Date:01/28/2023 Chief Complaint Worsening cough since last week. Was seen in ED. History of Present Illness Patient is a 17-year-old female who presents today with a chief complaint??of??cough. ??She reportsshe had a URI symptoms??approximately 10 to 12 days??ago. ??She states that she continues to??have a irritating, hacking cough. ??She denies fever, chills, body aches. ??States??cough is predominantly nonproductive with slight phlegm occasionally. Review of Systems Per HPI Physical Exam Vitals & Measurements T:??36.1?C ??(Tympanic)?? HR:??77??(Peripheral)?? BP:??136/91?? SpO2:??100%?? HT:??160.02??cm?? HT:??30.45??(Percentile)?? WT:??84.82??kg?? WT:??95.75??(Percentile)?? BMI:??33.12?? BMI:??96.03??(Percentile)?? BSA:??1.94?? General: Well-appearing, no acute distress, alert and oriented x3. Skin: No concerning lesions in examined areas. Head: Normal cephalic without trauma or injury. Neck: Supple, nontender, normal range of motion Eye: Pupils reactive. ??Conjunctiva clear. Sclera nonicteric. ??No swelling, obvious foreign bodies. ??Extraocular movement intact. ENT ear: Normal external, canal clear, TMs normal bilaterally. ??Nose: No discharge, normal mucosa,no swelling. ??Sinuses: Nontender to percussion. ??Oropharynx: Normal external, mucosal without mass, lesions, ulcerations. ??Dentition is intact. ??Tonsils not enlarged. ??No erythema, exudate, lesions, uvula midline. Cardiovascular: Regular rate and rhythm. ??No murmur, rubs, or gallops. Respiratory: Clear to auscultation bilaterally. ??No wheezes, rales, rhonchi. Medical Decision Making: Patient was evaluated for cough.?? Exam is unremarkable, she does have, dry??irritating bronchial??cough??and some slight??right-sided sinus pressure.?She will be started on a Z-Andrea and I providedher a ProAir inhaler??to utilize for cough. ??She is to follow-up with her primary care for lack ofimprovement. ??Seek urgent and or emergent care for worsening symptoms. Assessment/Plan 1.??Upper respiratory virus??J06.9 Ordered: ProAir HFA 90 mcg/inh inhalation aerosol, 1 puffs, Inhale, QID, PRN as needed for wheezing, # 8.5 g, 0 Refill(s), Pharmacy: [id number], 160, cm, 01/19/23 21:18:00 EDT, Height/Length Dosing, 83.91, kg, 01/19/23 21:18:00 EDT, Weight Dosing azithromycin 250 mg oral tablet, See Instruction, Oral, Daily, take 2 tabs on day 1 and 1 tabs on day 2-5, # 6 tab, 0 Refill(s), Pharmacy: [id number], 160, cm, 01/19/23 21:18:00 EDT, Height/Length Dosing, 83.91, kg, 01/19/23 21:18:00 EDT, Weight Dosing ?? Patient Instructions Take Z-Andrea as instructed, utilize the ProAir inhaler 1 to 2 puffs every 4-6 hours as needed for shortness of breath or cough. ??Follow-up with your primary care for lack of improvement Patient Education Upper Respiratory Infection, Adult Problem List/Past Medical History Ongoing No qualifying data Historical No qualifying data Medications azithromycin 250 mg oral tablet, See Instruction, Oral, Daily ProAir HFA 90 mcg/inh inhalation aerosol, 1 puffs, Inhale, QID, PRN Allergies amoxicillin Social History Electronic Cigarette/Vaping Electronic Cigarette Use: Never. Tobacco Never tobacco user Tobacco Use:. Electronically Signed on 01/28/23 07:00 PM Dawna Swann APRN Outpatient Summary note * Dawna Swann APRN: PERFORM Event Display: Ambulatory Patient Summary Authored Date: [id number] MELI CUNNINGHAM :2005 Age:17 years Sex:Female Visit Date:01/28/2023 Ambulatory Visit Instructions We would like to thank you for allowing us to assist you with your healthcare needs. The following includes patient education materials and information regarding your injury/illness. Your Next Steps Instructions From Your Care Team Take Z-Andrea as instructed, utilize the ProAir inhaler 1 to 2 puffs every 4-6 hours as needed for shortness of breath or cough. ??Follow-up with your primary care for lack of improvement Medications What How Much When Why Instructions New albuterol (ProAir HFA 90 mcg/ inh inhalation aerosol) 1 Puffs Inhale (breathe in) 4 times a day as needed for as needed for wheezing Upper respiratory virus Pickup at [place] [address] New azithromycin (azithromycin 250 mg oral tablet) See Instruction Oral (given by mouth) Every day Upper respiratory virus take 2 tabs on day 1 and 1 tabs on day 2-5 ?? Pickup at [facility] Pharmacy Information [place] [address]: [address], [place] [id number] [phone] Your Summary Your Diagnosis Upper respiratory virus Discharge Vitals Temperature??(Tympanic) 97.0 ??F (36.1 ??C) Heart Rate??(Peripheral) 77 Blood Pressure?? 136/91?? Height?? 63.00 in (160.02 cm) Weight?? 187.03 lb (84.82 kg) BMI?? 33.12 Allergies amoxicillin Education Materials Upper Respiratory Infection, Adult An upper respiratory infection (URI) is a common viral infection of the nose, throat, and upper airpassages that lead to the lungs. The most common type of URI is the common cold. URIs usually get better on their own, without medical treatment. What are the causes? A URI is caused by a virus. You may catch a virus by: ? Breathing in droplets from an infected person's cough or sneeze. ? Touching something that has been exposed to the virus (contaminated) and then touching your mouth, nose, or eyes. What increases the risk? You are more likely to get a URI if: ? You are very young or very old. ? It is karyn or winter. ? You have close contact with others, such as at a daycare, school, or health care facility. ? You smoke. ? You have long-term (chronic) heart or lung disease. ? You have a weakened disease-fighting (immune) system. ? You have nasal allergies or asthma. ? You are experiencing a lot of stress. ? You work in an area that has poor air circulation. ? You have poor nutrition. What are the signs or symptoms? A URI usually involves some of the following symptoms: ? Runny or stuffy (congested) nose. ? Sneezing. ? Cough. ? Sore throat. ? Headache. ? Fatigue. ? Fever. ? Loss of appetite. ? Pain in your forehead, behind your eyes, and over your cheekbones (sinus pain). ? Muscle aches. ? Redness or irritation of the eyes. ? Pressure in the ears or face. How is this diagnosed? This condition may be diagnosed based on your medical history and symptoms, and a physical exam. Your health care provider may use a cotton swab to take a mucus sample from your nose (nasal swab). This sample can be tested to determine what virus is causing the illness. How is this treated? URIs usually get better on their own within 7???10 days. You can take steps at home to relieve yoursymptoms. Medicines cannot cure URIs, but your health care provider may recommend certain medicinesto help relieve symptoms, such as: ? Erhz-yfn-xqxwjqv cold medicines. ? Cough suppressants. Coughing is a type of defense against infection that helps to clear the respiratory system, so take these medicines only as recommended by your health care provider. ? Fever-reducing medicines. Follow these instructions at home: Activity ? Rest as needed. ? If you have a fever, stay home from work or school until your fever is gone or until your health care provider says you are no longer contagious. Your health care provider may have you wear a face mask to prevent your infection from spreading. Relieving symptoms ? Gargle with a salt-water mixture 3???4 times a day or as needed. To make a salt- water mixture, completely dissolve ?1 tsp of salt in 1 cup of warm water. ? Use a cool-mist humidifier to add moisture to the air. This can help you breathe more easily. Eating and drinking ? Drink enough fluid to keep your urine pale yellow. ? Eat soups and other clear broths. General instructions ? Take xdmg-zic-srcqney and prescription medicines only as told by your health care provider. These include cold medicines, fever reducers, and cough suppressants. ? Do not use any products that contain nicotine or tobacco, such as cigarettes and e-cigarettes. If you need help quitting, ask your health care provider. ? Stay away from secondhand smoke. ? Stay up to date on all immunizations, including the yearly (annual) flu vaccine. ? Keep all follow-up visits as told by your health care provider. This is important. How to prevent the spread of infection to others ? URIs can be passed from person to person (are contagious). To prevent the infection from spreading: ? Wash your hands often with soap and water. If soap and water are not available, use hand desktop support manager. ? Avoid touching your mouth, face, eyes, or nose. ? Cough or sneeze into a tissue or your sleeve or elbow instead of into your hand or into the air. Contact a health care provider if: ? You are getting worse instead of better. ? You have a fever or chills. ? Your mucus is brown or red. ? You have yellow or brown discharge coming from your nose. ? You have pain in your face, especially when you bend forward. ? You have swollen neck glands. ? You have pain while swallowing. ? You have white areas in the back of your throat. Get help right away if: ? You have shortness of breath that gets worse. ? You have severe or persistent: ? Headache. ? Ear pain. ? Sinus pain. ? Chest pain. ? You have chronic lung disease along with any of the following: ? Wheezing. ? Prolonged cough. ? Coughing up blood. ? A change in your usual mucus. ? You have a stiff neck. ? You have changes in your: ? Vision. ? Hearing. ? Thinking. ? Mood. Summary ? An upper respiratory infection (URI) is a common infection of the nose, throat, and upper air passages that lead to the lungs. ? A URI is caused by a virus. ? URIs usually get better on their own within 7???10 days. ? Medicines cannot cure URIs, but your health care provider may recommend certain medicines to help relieve symptoms. This information is not intended to replace advice given to you by your health care provider. Make sure you discuss any questions you have with your health care provider. Document Revised: 06/28/2021 Document Reviewed: 06/28/2021 Else[employer] Patient Education ?? 2021 [employer] Electronically Signed on: 01/28/2023 18:56 EDTSigned by:PIERCE Patient Care team information Care Team Related Persons Name: REGINO CUNNINGHAM
--- NOTE | 2023-02-03 17:57 | DI.RAD_ITS ---
Exam(s) XR FOOT LT COMPLETE EXAM: XR FOOT LT COMPLETE CLINICAL HISTORY: left foot pain. TECHNIQUE: 2D digital imaging was performed. Three views. COMPARISON: No exams were available for comparison FINDINGS: BONES: Small chip fracture off the proximal corner of the cuboid. no bony destructive lesion is seen. JOINTS: No dislocation present. SOFT TISSUE: Normal. IMPRESSION: Small fracture fragment off the lateral cuboid. DATA REPOSITORY: RADIATION DOSE DELIVERED:
--- NOTE | 2023-02-03 18:17 | ED.GENADUL_ITS ---
Discharge Plan Disposition Patient Disposition: Home Discharge Details Clinical Impression: Foot fracture, left, Sprain of foot Primary Care Provider: CONCHITA MADRIGAL ED Provider: Daysi Vazquez Home Meds and New Rx's Prescriptions: Continued Excedrin Migraine 250-250-65 mg tablet 1 tab PO ONCE Nexplanon 68 mg implant 1 implant subdermal ONCE Qty: 1 0RF Rx Instructions: as a single dose Discharge Instructions Instructions: Foot Sprain (ED) Additional Instructions: Wear the boot as instructed Follow-up with orthopedics Ibuprofen and Tylenol as needed for pain Weightbearing as tolerated Referrals: Bernardo Hopson MD [ [facility]FF PHYSICIAN] - Medical Decision Making 18-year-old female presents with injury to left ankle, x-ray was ordered which shows avulsion fracture to foot, suspect sprain with avulsion fracture, placed in a short boot Will need orthopedic follow-up Return precautions reviewed and patient states understanding Ibuprofen and Tylenol as needed for Medical Records Medical records reviewed: Yes I reviewed the patient's medical records. HPI General Date/Time Provider Initiated Documentation: 02/03/23 17:35 . HPI Narrative: This 18-year-old female presents with injury to left foot at work. States she rolled it prior to arrival.denies chance of . Related Data Home Medications Medication Instructions Recorded Confirmed oopbmip-rmumicvddcybt-kubkhcvd 250 1 tab PO ONCE 11/30/19 02/03/23 mg-250 mg-65 mg tablet (Excedrin Migraine) etonogestrel 68 mg subdermal 1 implant subdermal ONCE #1 ea 01/27/23 02/03/23 implant (Nexplanon) Previous Rx's Medication Instructions Recorded etonogestrel 68 mg subdermal 1 implant subdermal ONCE #1 ea 01/27/23 implant (Nexplanon) Allergies Allergy/AdvReac Type Severity Reaction Status Date / Time amoxicillin Allergy Mild RASH Verified 02/03/23 17:32 General Stated Complaint: Orthopedic LIZZY: 4 PFSH All Active Problems (Updated 02/03/23 @ 18:09 by FLOR Asif) Foot fracture, left (Acute) Sprain of foot (Acute) Abrasion of knee (Acute) Contusion of knee (Acute) Menstrual cramp (Acute) Scoliosis (and kyphoscoliosis), idiopathic (Acute) Neck pain on left side (Acute) Pediatric body mass index (BMI) of greater than or equal to 95th percentile for age (Acute 07/31/16) Medical History Chronic serous otitis media (08/19/13) Visual problems wears glasses for reading Wears glasses Surgical History Myringotomy w/ PE (pressure equalizing) tubes X 3 Status post myringotomy with tube placement of both ears (07/25/14) [place] teeth extracted Family History Mother No problems noted. Father Essential hypertension Hyperlipidemia Mental disorder anxiety Ulcerative colitis Asthma Grandparent Diabetes T2 DM MGF Heart disease Other Diabetes MGGM, pat cousin Asthma P uncle and aunt Social History (Updated 04/29/22 @ 11:09 by Adriana Morel NP) Smoking/Tobacco Use Status: Never Smoking risk assessment performed?: Yes Alcohol Intake: never Drug use: Never Substance use type: does not use Education Level: other Details: taking a gap year before college Pets and animals: Yes Pets and animals: cat(s), dog(s) and fish Sexually active: No Current gender identity: female Seatbelt use: always Do you feel safe at home: Yes Do you feel safe in your relationship?: Yes History History 0 Para Hx # Term Pregnancies Multiple births Hx # Pregnancies Ectopic pregnancies AB induced Hx Number of Living Children AB spontaneous Exam Const General: cooperative and comfortable Extrem Other: Left foot with swelling and ecchymosis laterally, no tenderness to lateral malleolus, neurovascularly intact, no tenderness to knee Course Vital Signs Vital signs: Vital Signs Temperature 36.7 C 02/03/23 17:29 Pulse 102 H 02/03/23 17:29 Respiratory Rate 18 02/03/23 17:29 Blood Pressure 135/93 H 02/03/23 17:29 Pulse Oximetry 98 02/03/23 17:29 Temperature 36.7 C 02/03/23 17:29 Temperature Source Skin 02/03/23 17:29 Pulse 102 H 02/03/23 17:29 Respiratory Rate 18 02/03/23 17:29 Respiratory Effort Normal 02/03/23 17:33 Blood Pressure 135/93 H 02/03/23 17:29 Blood Pressure Position Sitting 02/03/23 17:29 Pulse Oximetry 98 02/03/23 17:29 Oxygen Delivery Method Room Air 02/03/23 17:29 Oxygen Flow Rate 0 02/03/23 17:29 Pain Level 4 02/03/23 18:14
--- NOTE | 2023-02-03 18:34 | DI.VRAD_ITS ---
PROCEDURE INFORMATION: Exam: XR Left Foot Exam date and time: 02/03/2023 5:55 PM Age: 18 years old Clinical indication: Other: Left foot pain TECHNIQUE: Imaging protocol: Radiologic exam of the left foot. Views: 3 or more views. COMPARISON: None. FINDINGS: Bones/joints: There is a tiny os navicular. Osseous mineralization is normal. There are no inflammatory osseous erosive changes. The plantar arch is maintained. The joint spaces are maintained without degenerative changes. No focal osseous lesions are identified. There are no acute displaced fractures or subluxations. Soft tissues: Normal. IMPRESSION: Unremarkable. Dictated and Authenticated by: Johnathan Roldan MD. Ordering:JOHN Tavarez MD
--- NOTE | 2023-02-10 10:44 | NUR.NOTE ---
Nursing Note: Accessed patient chart to print provider note to be faxed to [facility] for billing purposes.
== END 2023-02-03 18:18 | disposition home or self-care (01) ==
PROVIDERS: Emergency Provider Physician Assistant; PCP Nurse Practitioner Family
DX: S92.812A Other fracture of left foot, initial encounter for closed fracture (principal); Y99.0 Civilian activity done for income or pay; X50.1XXA Overexertion from prolonged static or awkward postures, initial encounter
CPT/HCPCS: 99283; 73630

== ENCOUNTER 2023-03-26 17:36 | Outpatient (CLI) | payer MEDICAID, SELFPAY ==
--- NOTE | 2023-03-26 | DI.RAD_ITS ---
Exam(s) XR ANKLE RT COMPLETE XR TIB/FIB RT XR FOOT RT COMPLETE EXAM: XR FOOT RT COMPLETE, XR tib/fib RT, XR ankle RT complete CLINICAL HISTORY: right foot pain. TECHNIQUE: 2D digital imaging was performed of the right ankle, leg and foot. Eight images were obt ained. AP, oblique and lateral views were obtained. COMPARISON: There are no priors for comparison. FINDINGS: BONES: No acute fracture is present. No bony destructive lesion is seen. JOINTS: No dislocation present. Joint spaces are well maintained. SOFT TISSUE: Normal. IMPRESSION: No acute fracture or dislocation. DATA REPOSITORY: RADIATION DOSE DELIVERED:
--- NOTE | 2023-03-26 18:15 | DI.VRAD_ITS ---
PROCEDURE INFORMATION: Exam: XR Right Tibia and Fibula Exam date and time: 03/26/2023 5:53 PM Age: 18 years old Clinical indication: Other: PT. Twisted RT ankle causing injury TECHNIQUE: Imaging protocol: Radiologic exam of the right tibia and fibula. Views: 2 views. Total images: 2 COMPARISON: CR XR ANKLE RT COMPLETE 03/26/2023 5:52 PM FINDINGS: Bones/joints: No evidence of acute fracture or dislocation. Soft tissues: Soft tissues are within normal limits. IMPRESSION: No evidence of acute fracture or dislocation. Dictated and Authenticated by: Jose Brooke MD. Ordering:ADÁN Kruse MD
--- NOTE | 2023-03-26 18:16 | DI.VRAD_ITS ---
PROCEDURE INFORMATION: Exam: XR Right Ankle Exam date and time: 03/26/2023 5:52 PM Age: 18 years old Clinical indication: Other: Twist RT ankle causing pain TECHNIQUE: Imaging protocol: Radiologic exam of the right ankle. Views: 3 or more views. Total images: 3 COMPARISON: CR XR FOOT RT COMPLETE 03/26/2023 5:49 PM FINDINGS: Bones/joints: No evidence of acute fracture or dislocation. Soft tissues: Soft tissues are within normal limits. IMPRESSION: No evidence of acute fracture or dislocation. Dictated and Authenticated by: Jose Brooke MD. Ordering:ADÁN Kruse MD
--- NOTE | 2023-03-26 18:16 | DI.VRAD_ITS ---
PROCEDURE INFORMATION: Exam: XR Right Foot Exam date and time: 03/26/2023 5:49 PM Age: 18 years old Clinical indication: Other: Twist ankle causing pain TECHNIQUE: Imaging protocol: Radiologic exam of the right foot. Views: 3 or more views. Total images: 3 COMPARISON: No relevant prior studies available. FINDINGS: Bones/joints: No evidence of acute fracture or dislocation. Soft tissues: Soft tissues are within normal limits. IMPRESSION: No evidence of acute fracture or dislocation. Dictated and Authenticated by: Jose Brooke MD. Ordering:ADÁN Kruse MD
== END 2023-03-26 17:56 ==
PROVIDERS: PCP Nurse Practitioner Family; Visit Provider Physician Assistant Medical
DX: M25.571 Pain in right ankle and joints of right foot (principal); M79.661 Pain in right lower leg
CPT/HCPCS: 73590; 73610; 73630

== ENCOUNTER 2023-07-30 19:49 | Emergency (ER) | payer OTHER, SELFPAY ==
[2023-07-30] VITALS (17 sets, daily range): BP systolic 127–145; BP diastolic 79–94; PULSE 75–92; RESP 16; TEMP 36.3–36.6; O2SAT 98–100
--- NOTE | 2023-07-30 20:15 | DI.RAD_ITS ---
Exam(s) XR CHEST 2V PA LATERAL EXAM: XR CHEST 2V PA LATERAL CLINICAL HISTORY: cough. TECHNIQUE: 2D digital imaging was performed. COMPARISON: No exams were available for comparison FINDINGS: 2 views: Heart size is normal. The mediastinum is not widened. Lungs are clear. No infiltrates nor pleural effusions. IMPRESSION: No acute pulmonary findings. DATA REPOSITORY: RADIATION DOSE DELIVERED:
[2023-07-30] MEDS: FAMOTIDINE 20 MG in Normal Saline 100 ML 400 MG IVPB (20:42)
[2023-07-30] MEDS: Lactated Ringers 1,000 ML 1000 ML IV (20:43)
[2023-07-30] MEDS: Ondansetron 4 MG/2 ML VIAL IVP (20:43)
--- NOTE | 2023-07-30 20:54 | W.ED.GENAD ---
Discharge Plan Disposition Patient Disposition: Home Discharge Details Clinical Impression: Nausea & vomiting Primary Care Provider: CONCHITA MADRIGAL ED Provider: Daysi Vazquez Home Meds and New Rx's Prescriptions: New ondansetron 4 mg tablet,disintegrating 4 mg PO Q8H 3 Days Qty: 9 0RF Continued Excedrin Migraine 250-250-65 mg tablet 1 tab PO ONCE Patient Comments: does not use 07/30/23 Nexplanon 68 mg implant 1 implant subdermal ONCE Qty: 1 0RF Rx Instructions: as a single dose Discharge Instructions Instructions: Acute Nausea and Vomiting (ED) Additional Instructions: take zofran as needed for nausea and vomiting take pepcid over the counter increased fluids, popsicles bland diet as tolerated return earlier with new or worsening complaints Referrals: CONCHITA MADRIGAL, [facility] [employer] ATTENDANT [Primary Care Provider] - Medical Decision Making 18-year-old female, alert and oriented, no acute distress, moist mucous membranes, no abdominal tenderness, CBC and CMP do not show significant acute abnormality, slight dehydration We will give IV fluid resuscitation, Zofran, will perform chest x-ray the patient's history of cough Chest x-ray per radiology interpretation and my review does not show evidence of acute abnormality, patient feeling symptomatically improved, will give popsicle and Zofran for home Return precautions reviewed and patient expressed understanding HPI General Date/Time Provider Initiated Documentation: 07/30/23 20:22. HPI Narrative: This 18-year-old female presents with nausea and vomiting for the past 2 months intermittently. She has been on several antibiotics she is currently taking prednisone for cough. She has vomited numerous times today per patient. Denies any chance of . Denies any chest pain or shortness of breath. Denies any diarrhea. Denies blood in vomitus. Related Data Home Medications Medication Instructions Recorded Confirmed zzmswcn-gwhhbctxporby-vptsoydc 250 1 tab PO ONCE 11/30/19 02/18/23 mg-250 mg-65 mg tablet (Excedrin Migraine) etonogestrel 68 mg subdermal 1 implant subdermal ONCE #1 ea 01/27/23 07/30/23 implant (Nexplanon) ondansetron 4 mg disintegrating 4 mg PO Q8H 3 days #9 tabs 07/30/23 tablet Previous Rx's Medication Instructions Recorded etonogestrel 68 mg subdermal 1 implant subdermal ONCE #1 ea 01/27/23 implant (Nexplanon) ondansetron 4 mg disintegrating 4 mg PO Q8H 3 days #9 tabs 07/30/23 tablet Allergies Allergy/AdvReac Type Severity Reaction Status Date / Time amoxicillin Allergy Mild RASH Verified 07/30/23 20:00 General Stated Complaint: Nausea/Vomit/Diar LIZZY: 3 PFSH All Active Problems (Updated 07/30/23 @ 22:21 by FLOR Asif) Nausea & vomiting (Acute) Closed left cuboid fracture (Acute) Abrasion of knee (Acute) Contusion of knee (Acute) Menstrual cramp (Acute) Scoliosis (and kyphoscoliosis), idiopathic (Acute) Neck pain on left side (Acute) Pediatric body mass index (BMI) of greater than or equal to 95th percentile for age (Acute 07/31/16) Medical History Chronic serous otitis media (08/19/13) Visual problems wears glasses for reading Wears glasses Surgical History Myringotomy w/ PE (pressure equalizing) tubes X 3 Status post myringotomy with tube placement of both ears (07/25/14) [place] teeth extracted Family History Mother No problems noted. Father Essential hypertension Hyperlipidemia Mental disorder anxiety Ulcerative colitis Asthma Grandparent Diabetes T2 DM MGF Heart disease Other Diabetes MGGM, pat cousin Asthma P uncle and aunt Social History Smoking/Tobacco Use Status: Never Smoking risk assessment performed?: Yes Alcohol Intake: never Drug use: Never Substance use type: does not use Education Level: other Details: taking a gap year before college Pets and animals: Yes Pets and animals: cat(s), dog(s) and fish Sexually active: No Current gender identity: female Seatbelt use: always Do you feel safe at home: Yes Do you feel safe in your relationship?: Yes History History 0 Para Hx # Term Pregnancies Multiple births Hx # Pregnancies Ectopic pregnancies AB induced Hx Number of Living Children AB spontaneous Course Vital Signs Vital signs: Vital Signs Temperature 36.3 C L 07/30/23 19:54 Pulse 92 H 07/30/23 19:54 Respiratory Rate 16 07/30/23 19:54 Blood Pressure 145/94 H 07/30/23 19:54 Pulse Oximetry 100 07/30/23 19:54 Temperature 36.3 C L 07/30/23 19:54 Temperature Source Oral 07/30/23 19:54 Pulse 92 H 07/30/23 19:54 Respiratory Rate 16 07/30/23 19:54 Respiratory Effort Normal, Non-Labored 07/30/23 19:58 Blood Pressure 145/94 H 07/30/23 19:54 Blood Pressure Position Sitting 07/30/23 19:54 Pulse Oximetry 100 07/30/23 19:54 Oxygen Delivery Method Room Air 07/30/23 19:54 Oxygen Flow Rate 0 07/30/23 19:54 Pain Level 2 07/30/23 19:54 Lab/Test Results Lab/Test Results: POC- Test(urine) Negative
[2023-07-30 20:55] LABS: Bilirubin Negative (Negative); Blood Trace-intact (Negative); Clarity Clear (Clear); Glucose Negative (Negative); Ketones 40 mg/dL (Negative); Leukocyte Esterase Negative (Negative); Nitrite Negative (Negative); Specific Gravity 1.025 (1.005-1.025)
[2023-07-30 20:57] LABS: Abs Immature Grans 0.07 10^3/uL (0.0-0.06); Absolute Basophil Count 0.02 10^3/uL (0.0-0.2); Absolute Eosinophil Count 0.01 10^3/uL (0.0-0.7); Absolute Lymphocyte Count 1.39 10^3/uL (1.2-3.4); Absolute Monocyte Count 0.53 10^3/uL (0.1-0.8); Absolute Neutrophil Count 8.73 10^3/uL (1.2-6.7); Basophils % 0.2; Eosinophils % 0.1; HCT 47.7 % (36.0-46.0); Immature Grans % 0.7; Lymphocytes % 12.9; MCH 26.9 pg (27.0-33.0); MCHC 33.5 % (32.0-36.0); MCV 80 fL (80-95); MPV 9.9 fL (8.0-11.0); Monocytes % 4.9; Neutrophils % 81.2; Platelet Count 362 10^3/uL (130-400); RBC 5.95 10^6/uL (3.93-5.22); RDW 13.1 % (11.7-14.6); RDW-SD 37.9 fL; WBC 10.75 10^3/uL (4.4-10.8)
[2023-07-30 21:12] LABS: ALT 29 U/L (14-59); AST 14 U/L (15-37); Albumin 4.6 g/dL (3.4-5.0); Alkaline Phosphatase 92 U/L (46-116); Anion Gap 11.4 mmol/L (3-11); BUN 11 mg/dL (7-18); Bilirubin, Total 0.7 mg/dL (0.2-1.0); CO2 26.6 mmol/L (21.0-32.0); CREATININE 0.8 mg/dL (0.55-1.02); Calcium 10.1 mg/dL (8.5-10.1); Chloride 100 mmol/L (98-107); Estimated GFR 108.11 (mL/min/1.73m2); Glucose 94 mg/dL (74-106); Lipase 26 U/L (16-77); Potassium 3.9 mmol/L (3.5-5.1); Sodium 138 mmol/L (136-145); Total Protein 8.9 g/dL (6.4-8.2)
[2023-07-30 21:29] LABS: Bacteria Rare HPF (Negative); C & S Indicated? No; Casts Negative LPF (Negative); Crystals Negative HPF (Negative); Epithelial Cells Few HPF (Negative); Mucus Trace (Negative); RBC 0-2 HPF (0-2); WBC Negative HPF (0-5)
--- NOTE | 2023-07-30 21:57 | DI.VRAD_ITS ---
PROCEDURE INFORMATION: Exam: XR Chest Exam date and time: 07/30/2023 9:27 PM Age: 18 years old Clinical indication: Cough TECHNIQUE: Imaging protocol: Radiologic exam of the chest. Views: 2 views. COMPARISON: CR CERV SP.WITH OBL OR FLEX/EXT 05/01/2018 2:12 PM FINDINGS: Lungs: No vascular congestion. No consolidation. Pleural spaces: Unremarkable. No pleural effusion. No pneumothorax. Heart/Mediastinum: Unremarkable. No cardiomegaly. Bones/joints: Mild thoracolumbar dextroscoliosis. IMPRESSION: No acute cardiopulmonary abnormality. Dictated and Authenticated by: Olaf Kelly MD. Ordering:JOHN Tavarez MD
[2023-07-30] MEDS: Ondansetron O.D.T. 4 MG TABEF, 3 TABS/BTL PO (22:24)
== END 2023-07-30 22:34 | disposition home or self-care (01) ==
PROVIDERS: Emergency Provider Physician Assistant; PCP Nurse Practitioner Family
DX: R11.2 Nausea with vomiting, unspecified (principal); R05.9 Cough, unspecified; E86.0 Dehydration
CPT/HCPCS: 80053; 81025; 83690; 96361; 96365; 96375; 99284; 71046; 81003; 81015; 85025; J2405

== ENCOUNTER 2023-11-23 20:22 | Emergency (ER) | payer OTHER, SELFPAY ==
[2023-11-23 20:24] VITALS: BP 152/93; PULSE 105; RESP 16; TEMP 36.4; O2SAT 100
--- OUTSIDE RECORDS SUMMARY | 2023-11-23 20:34 | XMS_ITS | Continuity of Care Document ---
Author Name Unknown Organization [facility] Address [address] [place] [address] Care Team Providers Care Certified Corporate Travel Executive Name Role Phone CONCHITA MADRIGAL APRN Primary Care Physician Encounter [facility] NBR [id number] Date(s): 07/24/23 - 07/24/23 [facility] [address] [place] [place] [address] Encounter Diagnosis Persistent cough for 3 weeks or longer(Discharge Diagnosis) - 07/24/23 Bronchitis(Discharge Diagnosis) - 07/24/23 Eustachian tube dysfunction(Discharge Diagnosis) - 07/24/23 Discharge Disposition: Home or Self Care Attending Physician: Elly Bhatti PA-C Admitting Physician: Elly Bhatti PA-C Allergies, Adverse Reactions, Alerts Substance Reaction Severity Status amoxicillin Moderate Active Seasonal Unknown Active Functional Status 07/24/23 Other exposure to Infectious Disease Non e Medications acetaminophen 1,300 mg =, Oral, every 8 hr, PRN as needed for pain, 0 Refill(s) Start Date: 07/09/23 Status: Ordered ketoconazole 2% topical shampoo APPLY SHAMPOO WITH 5-10ML DIRECTED EVERY OTHER DAY FOR DANDRUFF - LEAVE ON FOR 5 MINUTES, THEN RINSE, USE EVERY OTHER DAY FOR 2 TO 4 WEEKS, THEN USE ONCE A WEEK Start Date: 07/09/23 Status: Ordered Nexplanon 68 mg subcutaneous implant 0 Refill(s) Start Date: 07/09/23 Status: Ordered predniSONE 20 mg oral tablet 40 mg = 2 tab, Oral, Daily, # 10 tab, 0 Refill(s), Pharmacy: [facility] #[id number], 160.02, cm, 07/09/23 20:08:00 EDT, Height/Length Dosing, 86.64, kg, 07/09/23 20:08:00 EDT, Weight Dosing Start Date: 07/24/23 Stop Date: 07/29/23 Status: Ordered ProAir HFA 90 mcg/inh inhalation aerosol 1 puffs, Inhale, QID, PRN as needed for wheezing, # 8.5 g, 0 Refill(s), Pharmacy: [id number], 160, cm, 01/19/23 21:18:00 EDT, Height/Length Dosing, 83.91, kg, 01/19/23 21:18:00 EDT, WeightDosing Start Date: 01/28/23 Status: Ordered Tessalon Perles 100 mg oral capsule 100 mg = 1 cap, Oral, TID, PRN as needed for cough, # 21 cap, 0 Refill(s), Pharmacy: [facility] #[id number], 160.02, cm, 07/09/23 20:08:00 EDT, Height/Length Dosing, 86.64, kg, 07/09/23 20:08:00 EDT, WeightDosing Start Date: 07/24/23 Stop Date: 07/31/23 Status: Ordered Vital Signs Most recent to oldest [Reference Range]: 1 Temperature Tympanic [36.6-37.9 Deg C] 3 6.3 Deg C *LOW* (07/24/23 7:23 PM) Peripheral Pulse Rate [60-100 bpm] 80 bp m (07/24/23 7:23 PM) Respiratory Rate [12-24 br/min] 16 br/mi n (07/24/23 7:23 PM) Blood Pressure [90-140/60-90 mmHg] 140/9 0mmHg (07/24/23 7:23 PM) Social History Social History Type Response Tobacco Never tobacco user T obacco Use:. Sex Hospital Discharge Instructions Patient Education 07/24/2023 18:40:17 Acute Bronchitis, Adult, Niwx-th-Gwyt Acute Bronchitis, Adult Acute bronchitis is when air tubes in the lungs (bronchi) suddenly get swollen. The condition can make it hard for you to breathe. In adults, acute bronchitis usually goes away within 2 weeks. A cough caused by bronchitis may last up to 3 weeks. Smoking, allergies, and asthma can make the conditionworse. What are the causes? Germs that cause cold and flu (viruses). The most common cause of this condition is the virus that causes the common cold. ??? Bacteria. ??? Substances that bother (irritate) the lungs, including: ??? Smoke from cigarettes and other types of tobacco. ??? Dust and pollen. ??? Fumes from chemicals, gases, or burned fuel. ??? Indoor or outdoor air pollution. What increases the risk? A weak body's defense system. This is also called the immune system. ??? Any condition that affects your lungs and breathing, such as asthma. What are the signs or symptoms? A cough. ??? Coughing up clear, yellow, or green mucus. ??? Making high-pitched whistling sounds when you breathe, most often when you breathe out (wheezing). ??? Runny or stuffy nose. ??? Having too much mucus in your lungs (chest congestion). ??? Shortness of breath. ??? Body aches. ??? A sore throat. How is this treated? Acute bronchitis may go away over time without treatment. Your doctor may tell you to: ??? Drink more fluids. This will help thin your mucus so it is easier to cough up. ??? Use a device that gets medicine into your lungs (inhaler). ??? Use a vaporizer or a humidifier. These are machines that add water to the air. This helps with coughing and poor breathing. ??? Take a medicine that thins mucus and helps clear it from your lungs. ??? Take a medicine that prevents or stops coughing. It is not common to take an antibiotic medicine for this condition. Follow these instructions at home: ??? Take aatm-xsz-xjapmnz and prescription medicines only as told by your doctor. ??? Use an inhaler, vaporizer, or humidifier as told by your doctor. ??? Take two teaspoons (10 mL) of honey at bedtime. This helps lessen your coughing at night. ??? Drink enough fluid to keep your pee (urine) pale yellow. ??? Do not smoke or use any products that contain nicotine or tobacco. If you need help quitting, ask your doctor. ??? Get a lot of rest. ??? Return to your normal activities when your doctor says that it is safe. ??? Keep all follow-up visits. How is this prevented? Wash your hands often with soap and water for at least 20 seconds. If you cannot use soap and water, use hand refinery operator gas plant. ??? Avoid contact with people who have cold symptoms. ??? Try not to touch your mouth, nose, or eyes with your hands. ??? Avoid breathing in smoke or chemical fumes. ??? Make sure to get the flu shot every year. Contact a doctor if: ??? Your symptoms do not get better in 2 weeks. ??? You have trouble coughing up the mucus. ??? Your cough keeps you awake at night. ??? You have a fever. Get help right away if: ??? You cough up blood. ??? You have chest pain. ??? You have very bad shortness of breath. ??? You faint or keep feeling like you are going to faint. ??? You have a very bad headache. ??? Your fever or chills get worse. These symptoms may be an emergency. Get help right away. Call your local emergency services (911 [facility] [place] ??? Do not wait to see if the symptoms will go away. ??? Do not drive yourself to the hospital. Summary ??? Acute bronchitis is when air tubes in the lungs (bronchi) suddenly get swollen. In adults, acute bronchitis usually goes away within 2 weeks. ??? Drink more fluids. This will help thin your mucus so it is easier to cough up. ??? Take kdmk-dtw-okyykty and prescription medicines only as told by your doctor. ??? Contact a doctor if your symptoms do not improve after 2 weeks of treatment. This information is not intended to replace advice given to you by your health care provider. Make sure you discuss any questions you have with your health care provider. Document Revised: 02/20/2022 Document Reviewed: 02/20/2022 Elsevier Patient Education ?? 2022 [employer] Outpatient Summary note * Elly Bhatti PA-C: PERFORM Event Display: Ambulatory Patient Summary Authored Date: [id number] MELI CUNNINGHAM :2005 Age:18 years Sex:Female Visit Date:07/24/2023 Primary Care Physician: CONCHITA MADRIGAL APRN Ambulatory Visit Instructions We would like to thank you for allowing us to assist you with your healthcare needs. The following includes patient education materials and information regarding your injury/illness. Your Next Steps Instructions From Your Care Team After discussion of treatment options, we have opted to treat your cough with a course of prednisone.?? I have sent a prescription to [facility]. ??I have also sent a prescription for Tessalon Perles to your pharmacy.?? Take the prednisone in the morning as some people can notice a slight stimulatingeffect with this medication.?? You also have evidence of a eustachian tube dysfunction.?? I am recommending that you take??an lcoo-som-asfwtlv??decongestant/antihistamine such as Claritin-D or Zyrtec-D.?? Symptoms should improve with the steroid as well. ??Please follow-up for any new or worsening symptoms despite these recommendations Medications What How Much When Why Instructions New benzonatate (Tessalon Perles 100 mg oral capsule) 1 Capsules Oral (given by mouth) 3 times a day as needed for as needed for cough Persistent cough for 3 weeks or longer Bronchitis Eustachian tube dysfunction Duration: 7 Days Pickup at [facility] #[id number] New predniSONE (predniSONE 20 mg oral tablet) 2 tab Oral (given by mouth) Every day Persistent cough for 3 weeks or longer Bronchitis Eustachian tube dysfunction Duration: 5 Days Pickup at [facility] #[id number] Unchanged acetaminophen 1,300 Milligrams Oral (given by mouth) Every 8 hours as needed for as needed for pain Unchanged albuterol (ProAir HFA 90 mcg/ inh inhalation aerosol) 1 Puffs Inhale (breathe in) 4 times a day as needed for as needed for wheezing Upper respiratory virus Unchanged etonogestrel (Nexplanon 68 mg subcutaneous implant) Unchanged ketoconazole topical (ketoconazole 2% topical shampoo) APPLY SHAMPOO WITH 5-10ML DIRECTED EVERY OTHER DAY FOR DANDRUFF - LEAVE ON FOR 5 MINUTES, THEN RINSE, USE EVERY OTHER DAY FOR 2 TO 4 WEEKS, THEN USE ONCE A WEEK ?? Pharmacy Information [facility] #[id number]: [address], [place] [phone] Your Summary Your Diagnosis Persistent cough for 3 weeks or longer Bronchitis Eustachian tube dysfunction Your Care Team Admitting Physician - Elly Bhatti PA-C Attending Physician - Elly Bhatti PA-C Primary Care Physician - CONCHITA MADRIGAL APRN Discharge Vitals Temperature??(Tympanic) 97.3 ??F (36.3 ??C) Heart Rate??(Peripheral) 80 Respiratory Rate?? 16 Blood Pressure?? 140/90?? Allergies amoxicillin Seasonal Education Materials Acute Bronchitis, Adult Acute bronchitis is when air tubes in the lungs (bronchi) suddenly get swollen. The condition can make it hard for you to breathe. In adults, acute bronchitis usually goes away within 2 weeks. A cough caused by bronchitis may last up to 3 weeks. Smoking, allergies, and asthma can make the conditionworse. What are the causes? Germs that cause cold and flu (viruses). The most common cause of this condition is the virus that causes the common cold. ? Bacteria. ? Substances that bother (irritate) the lungs, including: ? Smoke from cigarettes and other types of tobacco. ? Dust and pollen. ? Fumes from chemicals, gases, or burned fuel. ? Indoor or outdoor air pollution. What increases the risk? A weak body's defense system. This is also called the immune system. ? Any condition that affects your lungs and breathing, such as asthma. What are the signs or symptoms? A cough. ? Coughing up clear, yellow, or green mucus. ? Making high-pitched whistling sounds when you breathe, most often when you breathe out (wheezing). ? Runny or stuffy nose. ? Having too much mucus in your lungs (chest congestion). ? Shortness of breath. ? Body aches. ? A sore throat. How is this treated? Acute bronchitis may go away over time without treatment. Your doctor may tell you to: ? Drink more fluids. This will help thin your mucus so it is easier to cough up. ? Use a device that gets medicine into your lungs (inhaler). ? Use a vaporizer or a humidifier. These are machines that add water to the air. This helps with coughing and poor breathing. ? Take a medicine that thins mucus and helps clear it from your lungs. ? Take a medicine that prevents or stops coughing. It is not common to take an antibiotic medicine for this condition. Follow these instructions at home: ? Take bksr-fxd-ufyqnfh and prescription medicines only as told by your doctor. ? Use an inhaler, vaporizer, or humidifier as told by your doctor. ? Take two teaspoons (10 mL) of honey at bedtime. This helps lessen your coughing at night. ? Drink enough fluid to keep your pee (urine) pale yellow. ? Do not smoke or use any products that contain nicotine or tobacco. If you need help quitting, ask your doctor. ? Get a lot of rest. ? Return to your normal activities when your doctor says that it is safe. ? Keep all follow-up visits. How is this prevented? Wash your hands often with soap and water for at least 20 seconds. If you cannot use soap and water, use hand refinery operator gas plant. ? Avoid contact with people who have cold symptoms. ? Try not to touch your mouth, nose, or eyes with your hands. ? Avoid breathing in smoke or chemical fumes. ? Make sure to get the flu shot every year. Contact a doctor if: ? Your symptoms do not get better in 2 weeks. ? You have trouble coughing up the mucus. ? Your cough keeps you awake at night. ? You have a fever. Get help right away if: ? You cough up blood. ? You have chest pain. ? You have very bad shortness of breath. ? You faint or keep feeling like you are going to faint. ? You have a very bad headache. ? Your fever or chills get worse. These symptoms may be an emergency. Get help right away. Call your local emergency services (911 [place] ? Do not wait to see if the symptoms will go away. ? Do not drive yourself to the hospital. Summary ? Acute bronchitis is when air tubes in the lungs (bronchi) suddenly get swollen. In adults, acute bronchitis usually goes away within 2 weeks. ? Drink more fluids. This will help thin your mucus so it is easier to cough up. ? Take ykbb-tmg-lhpmcui and prescription medicines only as told by your doctor. ? Contact a doctor if your symptoms do not improve after 2 weeks of treatment. This information is not intended to replace advice given to you by your health care provider. Make sure you discuss any questions you have with your health care provider. Document Revised: 02/20/2022 Document Reviewed: 02/20/2022 [employer] Patient Education ?? 2022 [employer] Electronically Signed on: 07/24/2023 19:41 EDTSigned by:EVONNE Patient Care team information Care Team Personnel Name: CONCHITA MADRIGAL APRN Position: No Access Member Role: Primary Care Physician Address: Address: [facility] [address] [place] [address]- Care Team Related Persons Name: REGINO CUNNINGHAM
--- OUTSIDE RECORDS SUMMARY | 2023-11-23 20:34 | XMS_ITS | Continuity of Care Document ---
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 Role Phone CONCHITA MADRIGAL APRN Primary Care Physician Encounter [facility] NBR [id number] Date(s): 07/30/23 - 07/30/23 [facility] Ambulatory Clinics [address] [place] [address]- Encounter Diagnosis Gastritis(Discharge Diagnosis) - 07/30/23 Discharge Disposition: Home or Self Care Attending Physician: Elly Bhatti PA-C Allergies, Adverse Reactions, Alerts Substance Reaction Severity Status amoxicillin Moderate Active Seasonal Unknown Active Medications acetaminophen 1,300 mg =, Oral, every [...] 0 Refill(s) Start Date: 07/09/23 Status: Ordered omeprazole 40 mg oral delayed release capsule 40 mg = 1 cap, Oral, Daily, # 30 cap, 1 Refill(s), Pharmacy: [facility] #[id number], 160.02, cm, 07/09/23 20:08:00 EDT, Height/Length Dosing, 86.64, kg, 07/09/23 20:08:00 EDT, Weight Dosing Start Date: 07/30/23 Stop Date: 09/28/23 Status: Ordered ondansetron 4 mg oral tablet, disintegrating 4 mg = 1 tab, Oral, every 8 hr, PRN as needed for nausea/vomiting, # 10 tab, 0 Refill(s), Pharmacy:[facility] #[id number], 160.02, cm, 07/09/23 20:08:00 EDT, Height/Length Dosing, 86.64, kg, 07/09/23 20:08:00 EDT, Weight Dosing Start Date: 07/30/23 Stop Date: 08/02/23 Status: Ordered predniSONE 20 mg oral tablet 40 mg = 2 tab, Oral, Daily, # 10 tab, 0 Refill(s), Pharmacy: [facility] #[id number], 160.02, cm, 07/09/23 20:08:00 EDT, Height/Length Dosing, 86.64, kg, 07/09/23 20:08:00 EDT, Weight Dosing Start Date: 07/24/23 Stop Date: 07/29/23 Status: Ordered ProAir HFA 90 mcg/inh inhalation aerosol 1 puffs, Inhale, QID, PRN as needed for wheezing, # 8.5 g, 0 Refill(s), Pharmacy: [id number], 160, cm, 01/19/23 21:18:00 EDT, Height/Length Dosing, 83.91, kg, 01/19/23 21:18:00 EDT, WeightDosing Start Date: 01/28/23 Status: Ordered Tessalon Perles 100 mg oral capsule 100 mg = 1 cap, Oral, TID, PRN as needed for cough, # 21 cap, 0 Refill(s), Pharmacy: [facility] #[id number], 160.02, cm, 07/09/23 20:08:00 EDT, Height/Length Dosing, 86.64, kg, 07/09/23 20:08:00 EDT, WeightDosing Start Date: 07/24/23 Stop Date: 07/31/23 Status: Ordered Vital Signs Most recent to oldest [Reference Range]: 1 Temperature Tympanic [36.6-37.9 Deg C] 3 5.9 Deg C *LOW* (07/30/23 3:08 PM) Peripheral Pulse Rate [60-100 bpm] 85 bp m (07/30/23 3:08 PM) Respiratory Rate [12-24 br/min] 16 br/mi n (07/30/23 3:08 PM) Blood Pressure [90-140/60-90 mmHg] 130/8 4mmHg (07/30/23 3:08 PM) Height 182 cm (07/30/23 3:08 PM) Height/Length Measured (inches) 71.65 in (07/30/23 3:08 PM) Social History Social History Type Response Tobacco Never tobacco user T obacco Use:. Sex Hospital Discharge Instructions Patient Education 07/30/2023 14:59:01 Gastritis, Adult, Wucr-pi-Nwun Gastritis, Adult Gastritis is irritation and swelling (inflammation) of the stomach. There are two kinds of gastritis: ??? Acute gastritis. This kind develops quickly. ??? Chronic gastritis. This kind is much more common. It develops slowly and lasts for a long time. It is important to get help for this condition. If you do not get help, your stomach can bleed, andyou can get sores (ulcers) in your stomach. What are the causes? This condition may be caused by: ??? Germs that get to your stomach and cause an infection. ??? Drinking too much alcohol. ??? Medicines you are taking. ??? Having too much acid in the stomach. ??? Having a disease of the stomach. Other causes may include: ??? An allergic reaction. ??? Some cancer treatments (radiation). ??? Smoking cigarettes or using products that contain nicotine or tobacco. In some cases, the cause of this condition is not known. What increases the risk? Having a disease of the intestines. ??? Having Crohn's disease. ??? Using aspirin or ibuprofen and other NSAIDs to treat other conditions. ??? Stress. What are the signs or symptoms? Pain in your stomach. ??? A burning feeling in your stomach. ??? Feeling like you may vomit (nauseous). ??? Vomiting or vomiting blood. ??? Feeling too full after you eat. ??? Weight loss. ??? Bad breath. ??? Blood in your poop (stool). In some cases, there are no symptoms. How is this treated? This condition is treated with medicines. The medicines that are used depend on what caused the condition. You may be given: ??? Antibiotic medicine, if your condition was caused by an infection from germs. ??? H2 blockers and similar medicines, if your condition was caused by too much acid in the stomach. Treatment may also include stopping the use of certain medicines, such as aspirin or ibuprofen. Follow these instructions at home: Medicines ??? Take yyij-ikn-rgecbch and prescription medicines only as told by your doctor. ??? If you were prescribed an antibiotic medicine, take it as told by your doctor. Do not stop taking it even if you start to feel better. Alcohol use ??? Do not drink alcohol if: ??? Your doctor tells you not to drink. ??? You are , may be , or are planning to become . ??? If you drink alcohol: ??? Limit your use to: ??? 0???1 drink a day for women. ??? 0???2 drinks a day for men. ??? Know how much alcohol is in your drink. In the [place] one drink equals one 12 oz bottle of beer (355 mL), one 5 oz glass of wine (148 mL), or one 1?? oz glass of hard liquor (44 mL). General instructions ??? Eat small meals often, instead of large meals. ??? Avoid foods and drinks that make you feel worse. ??? Drink enough fluid to keep your pee (urine) pale yellow. ??? Talk with your doctor about ways to manage stress. You can exercise or do deep breathing, meditation, or yoga. ??? Do not smoke or use any products that contain nicotine or tobacco. If you need help quitting, ask your doctor. ??? Keep all follow-up visits. Contact a doctor if: ??? Your symptoms get worse. ??? Your stomach pain gets worse. ??? Your symptoms go away and then come back. ??? You have a fever. Get help right away if: ??? You vomit blood or something that looks like coffee grounds. ??? You have black or dark red poop. ??? You throw up any time you try to drink fluids. These symptoms may be an emergency. Get help right away. Call your local emergency services (911 int [place] ??? Do not wait to see if the symptoms will go away. ??? Do not drive yourself to the hospital. Summary ??? Gastritis is irritation and swelling (inflammation) of the stomach. ??? You must get help for this condition. If you do not get help, your stomach can bleed, and you can get sores (ulcers) in your stomach. ??? You can be treated with medicines for germs or medicines to block too much acid in your stomach. This information is not intended to replace advice given to you by your health care provider. Make sure you discuss any questions you have with your health care provider. Document Revised: 02/23/2022 Document Reviewed: 02/23/2022 [employer] Patient Education ?? 2022 [employer]. Physician Outpatient Note * Elly Bhatti PA-C: PERFORM Event Display: Office Clinic Note Physician Authored Date: [id number] MELI CUNNINGHAM :2005 Age:18 years Sex:Female Visit Date:07/30/2023 Primary Care Physician: CONCHITA MADRIGAL APRN Chief Complaint patient has been vomitting blood as well as upper abd pain for about 1 day History of Present Illness This is a 18-year-old female who presents with her mother for evaluation. 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 She vomited twice and??it was mostly bile. ??She did notice that it did have a pink, bloody tinge to it. ??There was no large amount of blood.?? She has since been experiencing epigastric discomfort??that is not radiating to the back.?? She has not had dizziness, diarrhea, blood in the stool.?? Of note, she finished a 5-day course of prednisone??yesterday that was prescribed for her cough.?? She otherwise denies recent travel, eating unusual foods. ??She has not been taking any ibuprofen. ??She does not drink alcohol or smoke tobacco.?? She does not eat spicy foods.?? She does??typically drink a cup of coffee every day. Physical Exam Vitals & Measurements T:??35.9?C ??(Tympanic)?? HR:??85??(Peripheral)?? RR:??16?? BP:??130/84?? SpO2:??100%?? HT:??182??cm?? General: Alert and oriented x3, no acute distress, well-nourished and hydrated Oral: Moist mucous membranes without lesions Throat: No erythema or exudate in pharynx Neck: No lymphadenopathy Heart: S1-S2 normal, regular rate and rhythm, no murmurs, rubs, gallops Lungs: Clear to auscultation without wheezes, rales, rhonchi Abdomen: Soft, nondistended, bowel sounds normoactive,??epigastric tenderness to palpation, no right upper quadrant, left upper quadrant, right lower quadrant, left lower quadrant tenderness. ??No rebound, guarding, rigidity. ??No peritoneal signs Assessment/Plan 1.??Gastritis??K29.70 Patient presenting??with epigastric pain and 2 episodes of vomiting that were blood-tinged. ??She recently finished a 5-day course of prednisone prescribed for her cough.?? I suspect that she has a prednisone induced gastritis. ??Her vitals are very stable and she is not experiencing dizziness, blood in the stool,??epigastric pain radiating to the back so do not suspect??perforated ulcer. ??We discussed should the symptoms??occur she is to be seen in the emergency department immediately. ??In the meantime, I recommended that she start on omeprazole once daily. ??She should take for the next 4to 6 weeks.?? I also sent a prescription for??Zofran??that she can take as needed??up to 3 times a day for any nausea or vomiting.?? I encouraged that she avoid any NSAIDs, spicy food, citrus food, chocolate, peppermint,??alcohol,??acidic??food or beverages.?? Patient??agrees with plan. ??She will follow-up as needed for any new or worsening symptoms Ordered: omeprazole 40 mg oral delayed release capsule, 40 mg = 1 cap, Oral, Daily, # 30 cap, 1 Refill(s), Pharmacy: [facility] #[id number], 160.02, cm, 07/09/23 20:08:00 EDT, Height/Length Dosing, 86.64, kg, 07/09/23 20:08:00 EDT, Weight Dosing ondansetron 4 mg oral tablet, disintegrating, 4 mg = 1 tab, Oral, every 8 hr, PRN as needed for nausea/vomiting, # 10 tab, 0 Refill(s), Pharmacy: [facility] #[id number], 160.02, cm, 07/09/23 20:08:00 EDT, Height/Length Dosing, 86.64, kg, 07/09/23 20:08:00 EDT, Weight Dosing ?? Patient Instructions Your history, symptoms, and exam are consistent with??gastritis. ??This was likely??caused by your recent course of prednisone.?? I am recommending that you start omeprazole??daily for the next 4 to 6 weeks.?? This medication will help protect your stomach lining so that it can heal. ??I have also sent a prescription for Zofran that you can take as needed up to 3 times a day for any nausea and vomiting.?? As we discussed, please avoid any spicy foods, fatty/fried foods,??citrus??foods,??acidic caffeine,??ibuprofen, Aleve.?? Please continue to abstain from any alcohol or tobacco.?? Should you develop any worsening epigastric pain, persistent vomiting,??dizziness, blood in the stool, please return to clinic Patient Education Gastritis, Adult, Xqwd-fs-Trzi Problem List/Past Medical History Ongoing No qualifying data Historical No qualifying data Medications acetaminophen, 1300 mg, Oral, every 8 hr, PRN ketoconazole 2% topical shampoo Nexplanon 68 mg subcutaneous implant omeprazole 40 mg oral delayed release capsule, 40 mg= 1 cap, Oral, Daily, 1 refills ondansetron 4 mg oral tablet, disintegrating, 4 mg= 1 tab, Oral, every 8 hr, PRN predniSONE 20 mg oral tablet, 40 mg= 2 tab, Oral, Daily ProAir HFA 90 mcg/inh inhalation aerosol, 1 puffs, Inhale, QID, PRN Tessalon Perles 100 mg oral capsule, 100 mg= 1 cap, Oral, TID, PRN Allergies amoxicillin Seasonal Social History Electronic Cigarette/Vaping Electronic Cigarette Use: Never. Tobacco Never tobacco user Tobacco Use:. Electronically Signed on 07/30/23 04:24 PM Elly Bhatti PA-C Outpatient Summary note * Elly Bhatti PA-C: PERFORM Event Display: Ambulatory Patient Summary Authored Date: [id number] MELI CUNNINGHAM :2005 Age:18 years Sex:Female Visit Date:07/30/2023 Primary Care Physician: CONCHITA MADRIGAL APRN Ambulatory Visit Instructions We would like to thank you for allowing us to assist you with your healthcare needs. The following includes patient education materials and information regarding your injury/illness. Your Next Steps Instructions From Your Care Team Your history, symptoms, and exam are consistent with??gastritis. ??This was likely??caused by your recent course of prednisone.?? I am recommending that you start omeprazole??daily for the next 4 to 6 weeks.?? This medication will help protect your stomach lining so that it can heal. ??I have also sent a prescription for Zofran that you can take as needed up to 3 times a day for any nausea and vomiting.?? As we discussed, please avoid any spicy foods, fatty/fried foods,??citrus??foods,??acidic caffeine,??ibuprofen, Aleve.?? Please continue to abstain from any alcohol or tobacco.?? Should you develop any worsening epigastric pain, persistent vomiting,??dizziness, blood in the stool, please return to clinic Medications What How Much When Why Instructions Unchanged acetaminophen 1,300 Milligrams Oral (given by mouth) Every 8 hours as needed for as needed for pain Unchanged albuterol (ProAir HFA 90 mcg/ inh inhalation aerosol) 1 Puffs Inhale (breathe in) 4 times a day as needed for as needed for wheezing Upper respiratory virus Unchanged benzonatate (Tessalon Perles 100 mg oral capsule) 1 Capsules Oral (given by mouth) 3 times a day as needed for as needed for cough Persistent cough for 3 weeks or longer Bronchitis Eustachian tube dysfunction Duration: 7 Days Unchanged etonogestrel (Nexplanon 68 mg subcutaneous implant) Unchanged ketoconazole topical (ketoconazole 2% topical shampoo) APPLY SHAMPOO WITH 5-10ML DIRECTED EVERY OTHER DAY FOR DANDRUFF - LEAVE ON FOR 5 MINUTES, THEN RINSE, USE EVERY OTHER DAY FOR 2 TO 4 WEEKS, THEN USE ONCE A WEEK ?? Unchanged predniSONE (predniSONE 20 mg oral tablet) 2 tab Oral (given by mouth) Every day Persistent cough for 3 weeks or longer Bronchitis Eustachian tube dysfunction Duration: 5 Days Your Summary Your Diagnosis Gastritis Your Care Team Attending Physician - Elly Bhatti PA-C Primary Care Physician - CONCHITA MADRIGAL APRN Discharge Vitals Temperature??(Tympanic) 96.6 ??F (35.9 ??C) Heart Rate??(Peripheral) 85 Respiratory Rate?? 16 Blood Pressure?? 130/84?? Height?? 71.65 in (182 cm) Allergies amoxicillin Seasonal Education Materials Gastritis, Adult Gastritis is irritation and swelling (inflammation) of the stomach. There are two kinds of gastritis: ? Acute gastritis. This kind develops quickly. ? Chronic gastritis. This kind is much more common. It develops slowly and lasts for a long time. It is important to get help for this condition. If you do not get help, your stomach can bleed, andyou can get sores (ulcers) in your stomach. What are the causes? This condition may be caused by: ? Germs that get to your stomach and cause an infection. ? Drinking too much alcohol. ? Medicines you are taking. ? Having too much acid in the stomach. ? Having a disease of the stomach. Other causes may include: ? An allergic reaction. ? Some cancer treatments (radiation). ? Smoking cigarettes or using products that contain nicotine or tobacco. In some cases, the cause of this condition is not known. What increases the risk? Having a disease of the intestines. ? Having Crohn's disease. ? Using aspirin or ibuprofen and other NSAIDs to treat other conditions. ? Stress. What are the signs or symptoms? Pain in your stomach. ? A burning feeling in your stomach. ? Feeling like you may vomit (nauseous). ? Vomiting or vomiting blood. ? Feeling too full after you eat. ? Weight loss. ? Bad breath. ? Blood in your poop (stool). In some cases, there are no symptoms. How is this treated? This condition is treated with medicines. The medicines that are used depend on what caused the condition. You may be given: ? Antibiotic medicine, if your condition was caused by an infection from germs. ? H2 blockers and similar medicines, if your condition was caused by too much acid in the stomach. Treatment may also include stopping the use of certain medicines, such as aspirin or ibuprofen. Follow these instructions at home: Medicines ? Take yqbz-tyh-timgcrv and prescription medicines only as told by your doctor. ? If you were prescribed an antibiotic medicine, take it as told by your doctor. Do not stop taking it even if you start to feel better. Alcohol use ? Do not drink alcohol if: ? Your doctor tells you not to drink. ? You are , may be , or are planning to become . ? If you drink alcohol: ? Limit your use to: ? 0???1 drink a day for women. ? 0???2 drinks a day for men. ? Know how much alcohol is in your drink. In the [place] one drink equals one 12 oz bottle of beer (355mL), one 5 oz glass of wine (148 mL), or one 1?? oz glass of hard liquor (44 mL). General instructions ? Eat small meals often, instead of large meals. ? Avoid foods and drinks that make you feel worse. ? Drink enough fluid to keep your pee (urine) pale yellow. ? Talk with your doctor about ways to manage stress. You can exercise or do deep breathing, meditation, or yoga. ? Do not smoke or use any products that contain nicotine or tobacco. If you need help quitting, ask your doctor. ? Keep all follow-up visits. Contact a doctor if: ? Your symptoms get worse. ? Your stomach pain gets worse. ? Your symptoms go away and then come back. ? You have a fever. Get help right away if: ? You vomit blood or something that looks like coffee grounds. ? You have black or dark red poop. ? You throw up any time you try to drink fluids. These symptoms may be an emergency. Get help right away. Call your local emergency services (911 [facility] [place] ? Do not wait to see if the symptoms will go away. ? Do not drive yourself to the hospital. Summary ? Gastritis is irritation and swelling (inflammation) of the stomach. ? You must get help for this condition. If you do not get help, your stomach can bleed, and you can get sores (ulcers) in your stomach. ? You can be treated with medicines for germs or medicines to block too much acid in your stomach. This information is not intended to replace advice given to you by your health care provider. Make sure you discuss any questions you have with your health care provider. Document Revised: 02/23/2022 Document Reviewed: 02/23/2022 [employer] Patient Education ?? 2022 [employer] Electronically Signed on: 07/30/2023 15:59 EDTSigned by:EP Patient Care team information Care Team Personnel Name: CONCHITA MADRIGLA APRN Position: No Access Member Role: Primary Care Physician Address: Address: [facility] [address] [place] [address]- Care Team Related Persons Name: REGINO CUNNINGHAM
--- OUTSIDE RECORDS SUMMARY | 2023-11-23 20:34 | XMS_ITS | Continuity of Care Document ---
Author Name Unknown Organization [facility] Address [address] [place] [address] Encounter [facility] NBR [id number] Date(s): 06/23/23 - 06/23/23 [facility] [address] [place], [place] [address] Encounter Diagnosis Bilateral otitis media with effusion(Discharge Diagnosis) - 06/23/23 Unspecified nonsuppurative otitis media, bilateral(Final) - Discharge Disposition: Home or Self Care Attending Physician: Dawna Swann APRN Allergies, Adverse Reactions, Alerts Substance Reaction Severity Status amoxicillin Moderate Active Functional Status 06/23/23 Other exposure to Infectious Disease Non e Medications azithromycin 250 mg oral tablet See Instruction, Oral, Daily, take 2 tabs on day 1 and 1 tabs on day 2-5, # 6 tab, 0 Refill(s), Pharmacy: [id number], 160, cm, 01/19/23 21:18:00 EDT, Height/Length Dosing, 83.91, kg, 01/19/23 21:18:00 EDT, Weight Dosing Start Date: 01/28/23 Status: Ordered ProAir HFA 90 mcg/inh inhalation aerosol 1 puffs, Inhale, QID, PRN as needed for wheezing, # 8.5 g, 0 Refill(s), Pharmacy: [id number], 160, cm, 01/19/23 21:18:00 EDT, Height/Length Dosing, 83.91, kg, 01/19/23 21:18:00 EDT, WeightDosing Start Date: 01/28/23 Status: Ordered Vital Signs Most recent to oldest [Reference Range]: 1 Temperature Tympanic [36.6-37.9 Deg C] 3 6.3 Deg C *LOW* (06/23/23 10:19 AM) Peripheral Pulse Rate [60-100 bpm] 75 bp m (06/23/23 10:19 AM) Respiratory Rate [12-24 br/min] 16 br/mi n (06/23/23 10:19 AM) Blood Pressure [90-140/60-90 mmHg] 135/8 4mmHg (06/23/23 10:19 AM) Weight 86.18 kg (06/23/23 10:19 AM) Weight Measured (lbs) 189.994 lb (06/23/23 10:19 AM) Height 158 cm (06/23/23 10:19 AM) Height/Length Measured (inches) 62.2 inc h (06/23/23 10:19 AM) BSA Measured 1.94 m2 (06/23/23 10:19 AM) Body Mass Index 34.52 kg/m2 (06/23/23 10:19 AM) Social History Social History Type Response Tobacco Never tobacco user T obacco Use:. Sex Hospital Discharge Instructions Patient Education 06/23/2023 09:32:31 Otitis Media With Effusion, Adult Otitis Media With Effusion, Adult Otitis media with effusion (OME) is inflammation and fluid (effusion) in the middle ear without having an ear infection. The middle ear is the space behind the eardrum. The middle ear is connected tothe back of the throat by a narrow tube (eustachian tube). Normally the eustachian tube drains fluid out of the middle ear. A swollen eustachian tube can become blocked and cause fluid to collect in the middle ear. OME often goes away without treatment. Sometimes OME can lead to hearing problems and recurrent acute ear infections (acute otitis media). These conditions may require treatment. What are the causes? OME is caused by a blocked eustachian tube. This can result from: ??? Allergies. ??? Upper respiratory infections. ??? Enlarged adenoids. The adenoids are areas of soft tissue located high in the back of the throat, behind the nose and the roof of the mouth. They are part of the body's natural defense system (immune system). ??? Rapid changes in pressure, like when an airplane is descending or during scuba diving. In some cases, the cause of this condition is not known. What are the signs or symptoms? Common symptoms of this condition include: ??? A feeling of fullness in your ear. ??? Decreased hearing in the affected ear. ??? Fluid draining into the ear canal. ??? Pain in the ear. In some cases, there are no symptoms. How is this diagnosed? A health care provider can diagnose OME based on signs and symptoms of the condition. Your providerwill also do a physical exam to check for fluid behind the eardrum. During the exam, your health care provider will use an instrument called an otoscope to look in your ear. Your health care provider may do other tests, such as: ??? A hearing test. ??? A tympanogram. This is a test that shows how well the eardrum moves in response to air pressurein the ear canal. It provides a graph for your health care provider to review. ??? A pneumatic otoscopy. This is a test to check how your eardrum moves in response to changes in pressure. It is done by squeezing a small amount of air into the ear. How is this treated? Treatment for OME depends on the cause of the condition and the severity of symptoms. The first step is often waiting to see if the fluid drains on its own in a few weeks. Home care treatment may include: ??? Jgnn-jei-luyvvmj pain relievers. ??? A warm, moist cloth placed over the ear. Severe cases may require a procedure to insert tubes in the ears (tympanostomy tubes) to drain the fluid. Follow these instructions at home: ??? Take sfam-iur-fnqbyin and prescription medicines only as told by your health care provider. ??? Keep all follow-up visits. Contact a health care provider if: ??? You have pain that gets worse. ??? Hearing in your affected ear gets worse. ??? You have fluid draining from your ear canal. ??? You have dizziness. ??? You develop a fever. Get help right away if: ??? You develop a severe headache. ??? You completely lose hearing in the affected ear. ??? You have bleeding from your ear canal. ??? You have sudden and severe pain in your ear. These symptoms may represent a serious problem that is an emergency. Do not wait to see if the symptoms will go away. Get medical help right away. Call your local emergency services (911 in the [place] Do not drive yourself to the hospital. Summary ??? Otitis media with effusion (OME) is inflammation and fluid (effusion) in the middle ear withouthaving an ear infection. ??? A swollen eustachian tube can become blocked and cause fluid to collect in the middle ear. ??? Treatment for OME depends on the cause of the condition and the severity of symptoms. ??? Many times, treatment is not needed because the fluid drains on its own in a few weeks. ??? Sometimes OME can lead to hearing problems and recurrent acute ear infections (acute otitis media), which may require treatment. This information is not intended to replace advice given to you by your health care provider. Make sure you discuss any questions you have with your health care provider. Document Revised: 02/14/2022 Document Reviewed: 02/14/2022 [employer] Patient Education ?? 2022 [employer]. Physician Outpatient Note * Dawna Swann APRN: PERFORM Event Display: Office Clinic Note Physician Authored Date: [id number] MELI CUNNINGHAM :2005 Age:18 years Sex:Female Visit Date:06/23/2023 Chief Complaint bilateral ear pressure/pain for about 10 days History of Present Illness Patient is a 18-year-old female who presents today with a chief complaint of bilateral ear congestion. ??She states that??she??has had changes and ear pressure and feelings of congestion over the last week and a half. ??She states at times she gets dizzy. ??She denies any??recent illnesses, does state chronic allergic rhinitis but states that it has not been bad recently because the weather has??been so rainy. Review of Systems see hPI Physical Exam Vitals & Measurements T:??36.3?C ??(Tympanic)?? HR:??75??(Peripheral)?? RR:??16?? BP:??135/84?? SpO2:??100%?? HT:??158??cm?? WT:??86.18??kg?? BMI:??34.52?? Pain Score:??7?? BSA:??1.94?? General: Well-appearing, no acute distress, alert and oriented x3. Skin: No concerning lesions in examined areas. Head: Normal cephalic without trauma or injury. Neck: Supple, nontender, normal range of motion Eye: Pupils reactive. ??Conjunctiva clear. Sclera nonicteric. ??No swelling, obvious foreign bodies. ??Extraocular movement intact. ENT ear: Normal external, canal clear, TMs bulging, no erythema nose: No discharge, normal mucosa, no swelling. ??Sinuses: Nontender to percussion. ??Oropharynx: Normal external, mucosal without mass, lesions, ulcerations.?No erythema, exudate, lesions, uvula midline. Cardiovascular: Regular rate and rhythm. ??No murmur, rubs, or gallops. Respiratory: Clear to auscultation bilaterally. ??No wheezes, rales, rhonchi. Medical Decision Making: Patient was evaluated for bilateral ear congestion, exam does note bulging TMs without erythema, I provided her information??for home care utilizing decongestants and??antihistamines.?? She should follow-up for lack of improvement Assessment/Plan 1.??Bilateral otitis media with effusion??H65.93 Patient Instructions I would recommend taking a decongestant such as Sudafed??pretty consistently over the next few days, continue Flonase??intranasally daily you may do it twice a day if you do not have improvement.?You may also try on nondrowsy antihistamine such as Zyrtec. utilize??anti-inflammatory such as ibuprofen 600 mg every 6-8 hours.?? Primary care or return for lack of improvement Patient Education Otitis Media With Effusion, Adult Problem List/Past Medical History Ongoing No qualifying data Historical No qualifying data Medications azithromycin 250 mg oral tablet, See Instruction, Oral, Daily ProAir HFA 90 mcg/inh inhalation aerosol, 1 puffs, Inhale, QID, PRN Allergies amoxicillin Social History Electronic Cigarette/Vaping Electronic Cigarette Use: Never. Tobacco Never tobacco user Tobacco Use:. Electronically Signed on 06/23/23 10:47 AM Dawna Swann APRN Outpatient Summary note * Dawna Swann APRN: PERFORM Event Display: Ambulatory Patient Summary Authored Date: [id number] MELI CUNNINGHAM :2005 Age:18 years Sex:Female Visit Date:06/23/2023 Ambulatory Visit Instructions We would like to thank you for allowing us to assist you with your healthcare needs. The following includes patient education materials and information regarding your injury/illness. Your Next Steps Instructions From Your Care Team I would recommend taking a decongestant such as Sudafed??pretty consistently over the next few days, continue Flonase??intranasally daily you may do it twice a day if you do not have improvement.?You may also try on nondrowsy antihistamine such as Zyrtec. utilize??anti-inflammatory such as ibuprofen 600 mg every 6-8 hours.?? Primary care or return for lack of improvement Medications What How Much When Why Instructions Unchanged albuterol (ProAir HFA 90 mcg/ inh inhalation aerosol) 1 Puffs Inhale (breathe in) 4 times a day as needed for as needed for wheezing Upper respiratory virus Unchanged azithromycin (azithromycin 250 mg oral tablet) See Instruction Oral (given by mouth) Every day Upper respiratory virus take 2 tabs on day 1 and 1 tabs on day 2-5 ?? Your Summary Your Diagnosis Bilateral otitis media with effusion Your Care Team Attending Physician - Dawna Swann APRN Discharge Vitals Temperature??(Tympanic) 97.3 ??F (36.3 ??C) Heart Rate??(Peripheral) 75 Respiratory Rate?? 16 Blood Pressure?? 135/84?? Height?? 62.20 in (158 cm) Weight?? 190.03 lb (86.18 kg) BMI?? 34.52 Allergies amoxicillin Education Materials Otitis Media With Effusion, Adult Otitis media with effusion (OME) is inflammation and fluid (effusion) in the middle ear without having an ear infection. The middle ear is the space behind the eardrum. The middle ear is connected tothe back of the throat by a narrow tube (eustachian tube). Normally the eustachian tube drains fluid out of the middle ear. A swollen eustachian tube can become blocked and cause fluid to collect in the middle ear. OME often goes away without treatment. Sometimes OME can lead to hearing problems and recurrent acute ear infections (acute otitis media). These conditions may require treatment. What are the causes? OME is caused by a blocked eustachian tube. This can result from: ? Allergies. ? Upper respiratory infections. ? Enlarged adenoids. The adenoids are areas of soft tissue located high in the back of the throat, behind the nose and the roof of the mouth. They are part of the body's natural defense system (immune system). ? Rapid changes in pressure, like when an airplane is descending or during scuba diving. In some cases, the cause of this condition is not known. What are the signs or symptoms? Common symptoms of this condition include: ? A feeling of fullness in your ear. ? Decreased hearing in the affected ear. ? Fluid draining into the ear canal. ? Pain in the ear. In some cases, there are no symptoms. How is this diagnosed? A health care provider can diagnose OME based on signs and symptoms of the condition. Your providerwill also do a physical exam to check for fluid behind the eardrum. During the exam, your health care provider will use an instrument called an otoscope to look in your ear. Your health care provider may do other tests, such as: ? A hearing test. ? A tympanogram. This is a test that shows how well the eardrum moves in response to air pressure in the ear canal. It provides a graph for your health care provider to review. ? A pneumatic otoscopy. This is a test to check how your eardrum moves in response to changes in pressure. It is done by squeezing a small amount of air into the ear. How is this treated? Treatment for OME depends on the cause of the condition and the severity of symptoms. The first step is often waiting to see if the fluid drains on its own in a few weeks. Home care treatment may include: ? Soan-bjw-zlgklsk pain relievers. ? A warm, moist cloth placed over the ear. Severe cases may require a procedure to insert tubes in the ears (tympanostomy tubes) to drain the fluid. Follow these instructions at home: ? Take xdbj-gyd-uoeshbd and prescription medicines only as told by your health care provider. ? Keep all follow-up visits. Contact a health care provider if: ? You have pain that gets worse. ? Hearing in your affected ear gets worse. ? You have fluid draining from your ear canal. ? You have dizziness. ? You develop a fever. Get help right away if: ? You develop a severe headache. ? You completely lose hearing in the affected ear. ? You have bleeding from your ear canal. ? You have sudden and severe pain in your ear. These symptoms may represent a serious problem that is an emergency. Do not wait to see if the symptoms will go away. Get medical help right away. Call your local emergency services (911 in the [place] Do not drive yourself to the hospital. Summary ? Otitis media with effusion (OME) is inflammation and fluid (effusion) in the middle ear without having an ear infection. ? A swollen eustachian tube can become blocked and cause fluid to collect in the middle ear. ? Treatment for OME depends on the cause of the condition and the severity of symptoms. ? Many times, treatment is not needed because the fluid drains on its own in a few weeks. ? Sometimes OME can lead to hearing problems and recurrent acute ear infections (acute otitis media),which may require treatment. This information is not intended to replace advice given to you by your health care provider. Make sure you discuss any questions you have with your health care provider. Document Revised: 02/14/2022 Document Reviewed: 02/14/2022 [employer] Patient Education ?? 2022 [employer] Electronically Signed on: 06/23/2023 10:32 EDTSigned by:PIERCE Patient Care team information Care Team Related Persons Name: REGINO CUNNINGHAM
--- OUTSIDE RECORDS SUMMARY | 2023-11-23 20:34 | XMS_ITS | Continuity of Care Document ---
Author Name Unknown Organization [facility] Address [address] [place] [id number] Care Team Providers Care Immigration Consultant Name Role Phone CONCHITA MADRIGAL APRN Primary Care Physician Encounter [facility] FIN NBR [id number] Date(s): 07/09/23 - 07/09/[address] [address] Encounter Diagnosis AOM (acute otitis media)(Discharge Diagnosis) - 07/09/23 Discharge Disposition: Home f/u External Provider Attending Physician: Maximino Sanon MD Admitting Physician: Maximino Sanon MD Allergies, Adverse Reactions, Alerts Substance Reaction Severity Status amoxicillin Moderate Active Seasonal Unknown Active Functional Status 07/09/23 Family Member Travel History No recent t ravel Recent Travel History No recent travel Other exposure to Infectious Disease COV ID-19 Symptoms Present Medications acetaminophen 1,300 mg =, Oral, every 8 hr, PRN as needed for pain, 0 Refill(s) Start Date: 07/09/23 Status: Ordered azithromycin 250 mg oral tablet See Instruction, Oral, Daily, take 2 tabs on day 1 and 1 tabs on day 2-5, X 5 days, # 6 tab, 0 Refill(s), 07/14/23 7:27:00 PM CDT, Pharmacy: [id number], 160.02, cm, 07/09/23 20:08:00 EDT, Height/Length Dosing, 86.64, kg, 07/09/23 20:08:00 EDT, Weight Dosing Start Date: 07/09/23 Stop Date: 07/14/23 Status: Ordered ketoconazole 2% topical shampoo APPLY SHAMPOO WITH 5-10ML DIRECTED EVERY OTHER DAY FOR DANDRUFF - LEAVE ON FOR 5 MINUTES, THEN RINSE, USE EVERY OTHER DAY FOR 2 TO 4 WEEKS, THEN USE ONCE A WEEK Start Date: 07/09/23 Status: Ordered Nexplanon 68 mg subcutaneous implant 0 Refill(s) Start Date: 07/09/23 Status: Ordered ProAir HFA 90 mcg/inh inhalation aerosol 1 puffs, Inhale, QID, PRN as needed for wheezing, # 8.5 g, 0 Refill(s), Pharmacy: [id number], 160, cm, 01/19/23 21:18:00 EDT, Height/Length Dosing, 83.91, kg, 01/19/23 21:18:00 EDT, WeightDosing Start Date: 01/28/23 Status: Ordered Mental Status 07/09/23 Eye Opening Response Nino Spontaneous ly Best Verbal Response Nino Oriented Best Motor Response Nino Obeys comman ds Sterling Coma Score 15 Vital Signs Most recent to oldest [Reference Range]: 1 Temperature Oral [35.8-37.3 Deg C] 37.1 Deg C (07/09/23 7:57 PM) Peripheral Pulse Rate [60-100 bpm] 76 bp m (07/09/23 7:57 PM) Respiratory Rate [12-24 br/min] 16 br/mi n (07/09/23 7:57 PM) Blood Pressure [90-140/60-90 mmHg] 131/9 3mmHg (07/09/23 7:57 PM) Weight Dosing 86.64 kg (07/09/23 8:08 PM) Weight Estimated 86.64 kg (07/09/23 7:57 PM) Height/Length Dosing 160.020 cm (07/09/23 8:08 PM) Height/Length Estimated 160.020 cm (07/09/23 7:57 PM) Social History Social History Type Response Tobacco Never tobacco user T obacco Use:. Sex Hospital Discharge Instructions Patient Education 07/09/2023 19:30:01 Otitis Media, Adult Otitis Media, Adult Otitis media occurs when there is inflammation and fluid in the middle ear with signs and symptoms of an acute infection. The middle ear is a part of the ear that contains bones for hearing as well as air that helps send sounds to the brain. When infected fluid builds up in this space, it causes pressure and can lead to an ear infection. The eustachian tube connects the middle ear to the back of the nose (nasopharynx) and normally allows air into the middle ear. If the eustachian tube becomes blocked, fluid can build up and become infected. What are the causes? This condition is caused by a blockage in the eustachian tube. This can be caused by mucus or by swelling of the tube. Problems that can cause a blockage include: ??? A cold or other upper respiratory infection. ??? Allergies. ??? An irritant, such as tobacco smoke. ??? Enlarged adenoids. The adenoids are areas of soft tissue located high in the back of the throat, behind the nose and the roof of the mouth. They are part of the body's defense system (immune system). ??? A mass in the nasopharynx. ??? Damage to the ear caused by pressure changes (barotrauma). What increases the risk? You are more likely to develop this condition if you: ??? Smoke or are exposed to tobacco smoke. ??? Have an opening in the roof of your mouth (cleft palate). ??? Have gastroesophageal reflux. ??? Have an immune system disorder. What are the signs or symptoms? Symptoms of this condition include: ??? Ear pain. ??? Fever. ??? Decreased hearing. ??? Tiredness (lethargy). ??? Fluid leaking from the ear, if the eardrum is ruptured or has burst. ??? Ringing in the ear. How is this diagnosed? This condition is diagnosed with a physical exam. During the exam, your health care provider will use an instrument called an otoscope to look in your ear and check for redness, swelling, and fluid. He or she will also ask about your symptoms. Your health care provider may also order tests, such as: ??? A pneumatic otoscopy. This is a test to check the movement of the eardrum. It is done by squeezing a small amount of air into the ear. ??? A tympanogram. This is a test that shows how well the eardrum moves in response to air pressurein the ear canal. It provides a graph for your health care provider to review. How is this treated? This condition can go away on its own within 3???5 days. But if the condition is caused by a bacterial infection and does not go away on its own, or if it keeps coming back, your health care providermay: ??? Prescribe antibiotic medicine to treat the infection. ??? Prescribe or recommend medicines to control pain. Follow these instructions at home: ??? Take mrzu-opm-umyyllr and prescription medicines only as told by your health care provider. ??? If you were prescribed an antibiotic medicine, take it as told by your health care provider. Donot stop taking the antibiotic even if you start to feel better. ??? Keep all follow-up visits. This is important. Contact a health care provider if: ??? You have bleeding from your nose. ??? There is a lump on your neck. ??? You are not feeling better in 5 days. ??? You feel worse instead of better. Get help right away if: ??? You have severe pain that is not controlled with medicine. ??? You have swelling, redness, or pain around your ear. ??? You have stiffness in your neck. ??? A part of your face is not moving (paralyzed). ??? The bone behind your ear (mastoid bone) is tender when you touch it. ??? You develop a severe headache. Summary ??? Otitis media is redness, soreness, and swelling of the middle ear, usually resulting in pain and decreased hearing. ??? This condition can go away on its own within 3???5 days. ??? If the problem does not go away in 3???5 days, your health care provider may give you medicinesto treat the infection. ??? If you were prescribed an antibiotic medicine, take it as told by your health care provider. ??? Follow all instructions that were given to you by your health care provider. This information is not intended to replace advice given to you by your health care provider. Make sure you discuss any questions you have with your health care provider. Document Revised: 01/28/2022 Document Reviewed: 01/28/2022 Elsevier Patient Education ?? 2022 [employer] Follow Up Care 07/09/2023 19:57:15 With:Tylenol/Motrin for Pain/Fever Relief Address:Unknown When:1 month With:CONCHITA MADRIGAL APRN Address: [address] [facility] [place] [address]- When:1 month Physician Emergency department Note * FLOR Brice: PERFORM Event Display: ED Note Physician Authored Date: [id number] CUNNINGHAM MELI M :2005 Age:18 years Sex:Female Visit Date:07/09/2023 Primary Care Physician: CONCHITA MADRIGAL APRN Basic Information Time Seen: FLOR Brice / 07/09/2023 20:00 Chief Complaint Patient reports left eacrache with decreased hearing x 2 weeks that progressed with fever. [facility] with [facility] behind the ear. Arrives with continued pain. History Of Present Illness: Patient is otherwise healthy??18-year-old female here for concern of left ear pain has been presentfor the past 2 weeks. ??States it is worse??in the last 2 days. ??Was seen at [facility] 2 weeks ago and diagnosed with??effusion. ??States that she has been using the??Flonase but no antihistamine at this time. ??There is been no discharge from the ear. ??She otherwise feels well. ??Denies any cough??fever??nasal or sinus congestion. ??No sore throat.?? No recent travel??or swimming. ??Mother explains that she was prone to ear infections as a child. Review of Systems: see HPI Physical Exam Vitals & Measurements T:??37.1?C ??(Oral)?? HR:??76??(Peripheral)?? RR:??16?? BP:??131/93?? SpO2:??100%?? HT:??160.020??cm?? WT:??86.64??kg??(Estimated)?? Pain Score:??5?? O2 Therapy:??Room air?? General: Patient is alert and engaging, appears well. Is in no acute distress. Speaking comfortablyin full sentences.?? Constitutional: No fevers, chills or diaphoresis.?? HEENT: Head normocephalic and atraumatic. Neck supple with FROM w/o lymphadenopathy or JVD. Tracheamidline. No c-spine tenderness. EOMs intact w/o pain. Pupils equal and reactive to light. TMs visualized bilaterally, purulent effusion present behind the left TM. Respiratory: ??No obvious work of breathing, regular rate. BS equal b/l, clear to auscultation. Cardiovascular: Heart regular rate and rhythm w/o murmurs, rubs or gallops. No peripheral edema present.?? GI: normoactive BS. Abdomen soft non tender, nondistended without guarding, rebound or rigidity. NoHSM Extremities: No obvious deformities. FROM.?? Integumentary: Skin warm and pink. No rashes or ecchymosis present.?? Neuro: CN III-XII grossly intact.?? Psychiatric: acting appropriate for age and circumstance. Normal mood without obvious ??affect.?? Medical Decision Making: Patient is a pleasant well-appearing 18-year-old female here for concern of??pain in the left ear. ??It has been present for the past 2 weeks but??progressing??in the past 2 days. ??Vitals obtained??and reviewed. ??All within normal limits. ??She is afebrile. ??On exam I do appreciate purulent effusion??under the left TM consistent with??AOM. ??Because of the length of time this has been present for we will treat??with an antibiotic.?? Sent in a prescription for Z-Andrea due to the amoxicillin allergy however after speaking with mother she explains that??when she took the amoxicillin she developed a yeast infection as a child. 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 ??Encourage continued use of the Flonase and an antihistamine??daily for the next week. Procedure No Qualifying Data Assessment/Plan 1.??AOM (acute otitis media)??H66.90 Discharged home with azithromycin??and continued Flonase and Claritin. ??Understands importance of??PCP follow-up and return precautions understood. Ordered: Discharge Patient, 07/09/23 20:29:00 EDT ?? Orders: azithromycin 250 mg oral tablet, See Instruction, Oral, Daily, take 2 tabs on day 1 and 1 tabs on day 2-5, X 5 days, # 6 tab, 0 Refill(s), 07/14/23 20:27:00 EDT, Pharmacy: [id number], 160.02, cm, 07/09/23 20:08:00 EDT, Height/Length Dosing, 86.64, kg, 07/09/23 20:08:00 EDT... Patient Education Otitis Media, Adult Follow Up With When Contact Information Tylenol/Motrin for Pain/Fever Relief Within 1 month Additional Instructions: CONCHITA MADRIGAL APRN Within 1 month [facility] [address] [facility] [place] [address]- Additional Instructions: Medication Reconciliation New Prescription azithromycin (azithromycin 250 mg oral tablet)See Instruction Oral (given by mouth) every day for 5Days. take 2 tabs on day 1 and 1 tabs on day 2-5. Refills: 0. ?? Unchanged acetaminophen1,300 Milligrams Oral (given by mouth) every 8 hours as needed as needed for pain. ?? albuterol (ProAir HFA 90 mcg/inh inhalation aerosol)1 Puffs Inhale (breathe in) 4 times a day as needed as needed for wheezing. Refills: 0. ?? etonogestrel (Nexplanon 68 mg subcutaneous implant) ?? ketoconazole topical (ketoconazole 2% topical shampoo)APPLY SHAMPOO WITH 5-10ML DIRECTED EVERY OTHER DAY FOR DANDRUFF - LEAVE ON FOR 5 MINUTES, THEN RINSE, USE EVERY OTHER DAY FOR 2 TO 4 WEEKS, THEN USE ONCE A WEEK. Problem List/Past Medical History Ongoing No qualifying data Historical No qualifying data Allergies amoxicillin Seasonal Social History Electronic Cigarette/Vaping Electronic Cigarette Use: Never. Tobacco Never tobacco user Tobacco Use:. Electronically Signed on 07/09/23 09:17 PM FLOR Brice Emergency department Discharge instructions * FLOR Brice: PERFORM Event Display: ED Discharge Information Authored Date: [id number] MELI CUNNINGHAM :2005 Age:18 years Sex:Female Visit Date:07/09/2023 Primary Care Physician: CONCHITA MADRIGAL APRN Discharge Instructions We would like to thank you for allowing us to assist you with your healthcare needs. The following includes patient education materials and information regarding your injury/illness. Diagnosis from Today's Visit AOM (acute otitis media) Discharge Vitals Temperature??(Oral) 98.8 ??F (37.1 ??C) Heart Rate??(Peripheral) 76 Respiratory Rate?? 16 Blood Pressure?? 131/93?? Height?? 63.00 in (160.020 cm) Weight??(Estimated) 191.04 lb (86.64 kg) Allergies amoxicillin Seasonal What to Do Next Instructions from Your Care Team You have??an inner ear infection of the left ear. ??Please take the azithromycin as prescribed and continue with your Flonase and antihistamine.?? I sent in a Diflucan to use??if you have any concerns for yeast infection when taking the antibiotic.?? Please continue with Tylenol and ibuprofen??and stay well-hydrated as this helps the antibiotic to the ear.?? Please follow-up with your PCP and return if there is any worsening pains??or headache??dizziness fevers. You Need to Schedule the Following Appointments Follow Up with??Tylenol/Motrin for Pain/Fever Relief When:??Within 1 month Follow Up with??CONCHITA MADRIGAL APRN When:??Within 1 month Where: [address] [place] [address]- You were treated today on an emergency [...] Much When Why Instructions Next Dose New azithromycin (azithromycin 250 mg oral tablet) See Instruction Oral (given by mouth) Every day Duration: 5 Days take 2 tabs on day 1 and 1 tabs on day 2-5 ?? Pickup at [id number] Unchanged acetaminophen 1,300 Milligrams Oral (given by [...] USE ONCE A WEEK ?? Pharmacy Information [id number]: [address] [place], [place] [id number] [phone] Education Materials Otitis Media, Adult Otitis media occurs when there is inflammation and fluid in the middle ear with signs and symptoms of an acute infection. The middle ear is a part of the ear that contains bones for hearing as well as air that helps send sounds to the brain. When infected fluid builds up in this space, it causes pressure and can lead to an ear infection. The eustachian tube connects the middle ear to the back of the nose (nasopharynx) and normally allows air into the middle ear. If the eustachian tube becomes blocked, fluid can build up and become infected. What are the causes? This condition is caused by a blockage in the eustachian tube. This can be caused by mucus or by swelling of the tube. Problems that can cause a blockage include: ? A cold or other upper respiratory infection. ? Allergies. ? An irritant, such as tobacco smoke. ? Enlarged adenoids. The adenoids are areas of soft tissue located high in the back of the throat, behind the nose and the roof of the mouth. They are part of the body's defense system (immune system). ? A mass in the nasopharynx. ? Damage to the ear caused by pressure changes (barotrauma). What increases the risk? You are more likely to develop this condition if you: ? Smoke or are exposed to tobacco smoke. ? Have an opening in the roof of your mouth (cleft palate). ? Have gastroesophageal reflux. ? Have an immune system disorder. What are the signs or symptoms? Symptoms of this condition include: ? Ear pain. ? Fever. ? Decreased hearing. ? Tiredness (lethargy). ? Fluid leaking from the ear, if the eardrum is ruptured or has burst. ? Ringing in the ear. How is this diagnosed? This condition is diagnosed with a physical exam. During the exam, your health care provider will use an instrument called an otoscope to look in your ear and check for redness, swelling, and fluid. He or she will also ask about your symptoms. Your health care provider may also order tests, such as: ? A pneumatic otoscopy. This is a test to check the movement of the eardrum. It is done by squeezing a small amount of air into the ear. ? A tympanogram. This is a test that shows how well the eardrum moves in response to air pressure in the ear canal. It provides a graph for your health care provider to review. How is this treated? This condition can go away on its own within 3???5 days. But if the condition is caused by a bacterial infection and does not go away on its own, or if it keeps coming back, your health care providermay: ? Prescribe antibiotic medicine to treat the infection. ? Prescribe or recommend medicines to control pain. Follow these instructions at home: ? Take bjct-lud-rxhmzpf and prescription medicines only as told by your health care provider. ? If you were prescribed an antibiotic medicine, take it as told by your health care provider. Do notstop taking the antibiotic even if you start to feel better. ? Keep all follow-up visits. This is important. Contact a health care provider if: ? You have bleeding from your nose. ? There is a lump on your neck. ? You are not feeling better in 5 days. ? You feel worse instead of better. Get help right away if: ? You have severe pain that is not controlled with medicine. ? You have swelling, redness, or pain around your ear. ? You have stiffness in your neck. ? A part of your face is not moving (paralyzed). ? The bone behind your ear (mastoid bone) is tender when you touch it. ? You develop a severe headache. Summary ? Otitis media is redness, soreness, and swelling of the middle ear, usually resulting in pain and decreased hearing. ? This condition can go away on its own within 3???5 days. ? If the problem does not go away in 3???5 days, your health care provider may give you medicines to treat the infection. ? If you were prescribed an antibiotic medicine, take it as told by your health care provider. ? Follow all instructions that were given to you by your health care provider. This information is not intended to replace advice given to you by your health care provider. Make sure you discuss any questions you have with your health care provider. Document Revised: 01/28/2022 Document Reviewed: 01/28/2022 [employer] Patient Education ?? 2022 [employer] Patient/Aviation Safety Inspector Signature Patient Name:CUNNINGHAM MELI Ramón I have received this information and my questions have been answered. Patient/Aviation Safety Inspector Name: Patient/Aviation Safety Inspector Signature: Relationship to Patient: Witness Name/Signature: Date: Electronically Signed on: 07/09/2023 20:31 EDTSigned by:TR Patient Care team information Care Team Personnel Name: CONCHITA MADRIGAL APRN Position: No Access Member Role: Primary Care Physician Address: Address: [address], [place] [address] Name: Frankie Bartholomew Position: Nurse Member Role: ED Nurse Name: FLOR Brice Position: Physician Member Role: Physician Address: Address: [address] [place] [id number]- Care Team Related Persons Name: REGINO CUNNINGHAM
[2023-11-23 20:41] LABS: Bilirubin Small (Negative); Blood Small (Negative); Clarity Sl Cloudy (Clear); Glucose Negative (Negative); Ketones Trace mg/dL (Negative); Leukocyte Esterase Negative (Negative); Nitrite Negative (Negative); Specific Gravity >= 1.030 (1.005-1.025)
[2023-11-23 20:45] LABS: Bacteria Few HPF (Negative); C & S Indicated? No/Sq. Contamination; Casts Negative LPF (Negative); Crystals Negative HPF (Negative); Epithelial Cells Many HPF (Negative); Mucus Trace (Negative)
[2023-11-23 20:46] LABS: Abs Immature Grans 0.02 10^3/uL (0.0-0.06); Absolute Basophil Count 0.02 10^3/uL (0.0-0.2); Absolute Eosinophil Count 0.07 10^3/uL (0.0-0.7); Absolute Lymphocyte Count 0.52 10^3/uL (1.2-3.4); Absolute Monocyte Count 0.65 10^3/uL (0.1-0.8); Absolute Neutrophil Count 6.64 10^3/uL (1.2-6.7); Basophils % 0.3; Eosinophils % 0.9; HGB 15.2 g/dL (11.2-15.7); Immature Grans % 0.3; Lymphocytes % 6.6; MCHC 33.8 % (32.0-36.0); MCV 80 fL (80-95); MPV 9.4 fL (8.0-11.0); Monocytes % 8.2; Neutrophils % 83.7; Platelet Count 289 10^3/uL (130-400); RBC 5.63 10^6/uL (3.93-5.22); RDW 12.9 % (11.7-14.6); RDW-SD 37.3 fL; WBC 7.92 10^3/uL (4.4-10.8)
[2023-11-23] MEDS: Normal Saline 1,000 ML 1000 ML IV (20:50)
[2023-11-23 20:51] VITALS: BP 152/93; PULSE 105; RESP 16; TEMP 36.4; O2SAT 100
[2023-11-23] MEDS: Pantoprazole 40 MG VIAL IVP (20:55)
[2023-11-23] MEDS: Prochlorperazine 10 MG/2 ML VIAL IVP (20:55)
[2023-11-23] MEDS: Normal Saline 50 ML (20:55)
[2023-11-23 21:01] LABS: Anion Gap 9.8 mmol/L (3-11); BUN 11 mg/dL (7-18); CO2 28.2 mmol/L (21.0-32.0); Chloride 102 mmol/L (98-107); Estimated GFR 82.71 (mL/min/1.73m2); Glucose 115 mg/dL (74-106); Potassium 3.4 mmol/L (3.5-5.1); Sodium 140 mmol/L (136-145)
[2023-11-23 21:17] VITALS: BP 149/84; PULSE 99; RESP 18; O2SAT 100
[2023-11-23] MEDS: diphenhydrAMINE 50 MG/ML VIAL 25 MG IVP (21:32)
[2023-11-23 21:34] VITALS: BP 131/66; PULSE 89; RESP 18; O2SAT 100
[2023-11-23 21:41] LABS: ALT 22 U/L (14-59); AST 13 U/L (15-37); Albumin 3.9 g/dL (3.4-5.0); Alkaline Phosphatase 82 U/L (46-116); Bilirubin, Direct 0.2 mg/dL (0.0-0.2); Bilirubin, Total 0.9 mg/dL (0.2-1.0); Total Protein 7.7 g/dL (6.4-8.2)
--- NOTE | 2023-11-23 22:20 | ED.GENADUL_ITS ---
HPI General Mode of arrival: ambulatory . Date/Time Provider Initiated Documentation: 11/23/23 20:30 . Limitations to Documentation: no limitations . Information obtained by: patient . HPI Narrative: Presents for evaluation of intractable nausea vomiting and diarrhea which has been on going all day. Reports that she had fever up to 101. Using Tylenol for symptoms. Denies any sick contacts with similar symptoms Related Data Home Medications Medication Instructions Recorded Confirmed [id number] 250 1 tab PO ONCE 11/30/19 11/23/23 mg-250 mg-65 mg tablet (Excedrin Migraine) hydroxyzine HCl 25 mg tablet 25 mg PO QHS 09/02/23 11/23/23 Ondansetron ODT, 3 tabs/btl 4 mg PO DISPENSE ##0 11/23/23 [Zofran ODT, 3 tabs/btl] Previous Rx's Medication Instructions Recorded Ondansetron ODT, 3 tabs/btl 4 mg PO DISPENSE ##0 11/23/23 [Zofran ODT, 3 tabs/btl] Allergies Allergy/AdvReac Type Severity Reaction Status Date / Time amoxicillin Allergy Mild RASH Verified 11/23/23 20:28 General Stated Complaint: Nausea/Vomit/Diar LIZZY: 3 Review of Systems All systems reviewed & are unremarkable except as noted in HPI and below Exam Narrative Exam Narrative: Mildly ill appearing female of stated age no acute distress skin is pale warm dry Head is atraumatic normal appearance of face and eyes which are nonicteric noninjected no nasal drainage oral mucosas slightly dry no exudate Neck is supple with no JVD Respirations are even and unlabored Pulse is regular rhythm and tachycardic. Abdomen is soft round nontender Extremities are without edema moves all extremities Neuro awake alert oriented no focal deficits Skin with no rashes or lesions Course Vital Signs Vital signs: Vital Signs Temperature 36.4 C L 11/23/23 20:24 Pulse 105 H 11/23/23 20:24 Respiratory Rate 16 11/23/23 20:24 Blood Pressure 152/93 H 11/23/23 20:24 Pulse Oximetry 100 11/23/23 20:24 Temperature 36.4 C L 11/23/23 20:51 Temperature Source Skin 11/23/23 20:51 Pulse 89 11/23/23 21:34 Respiratory Rate 18 01/21/24 21:34 Respiratory Effort Normal, Non-Labored 11/23/23 20:30 Blood Pressure 131/66 11/23/23 21:34 Blood Pressure Position Sitting 11/23/23 20:51 Pulse Oximetry 100 11/23/23 21:34 Oxygen Delivery Method Room Air 11/23/23 21:34 Oxygen Flow Rate 0 11/23/23 21:34 Pain Level 0 11/23/23 20:51 Lab/Test Results Lab/Test Results: Laboratory Tests Range/Units 11/23/23 11/23/23 20:30 20:42 WBC (4.4-10.8) 10^3/uL 7.92 RBC (3.93-5.22) 10^6/uL 5.63 H Hgb (11.2-15.7) g/dL 15.2 Hct (36.0-46.0) % 45.0 MCV (80-95) fL 80 MCH (27.0-33.0) pg 27.0 MCHC (32.0-36.0) % 33.8 RDW (11.7-14.6) % 12.9 Plt Count (130-400) 10^3/uL 289 MPV (8.0-11.0) fL 9.4 Immature Gran % 0.3 Neutrophils % 83.7 Lymphocytes % 6.6 Monocytes % 8.2 Eosinophils % 0.9 Basophils % 0.3 Nucleated RBC % (0.0-0.3) % 0.0 Absolute Neutrophils (1.2-6.7) 10^3/uL 6.64 Absolute Lymphocytes (1.2-3.4) 10^3/uL 0.52 L Absolute Monocytes (0.1-0.8) 10^3/uL 0.65 Absolute Eosinophils (0.0-0.7) 10^3/uL 0.07 Absolute Basophils (0.0-0.2) 10^3/uL 0.02 Sodium (136-145) mmol/L 140 Potassium (3.5-5.1) mmol/L 3.4 L Chloride (98-107) mmol/L 102 Carbon Dioxide (21.0-32.0) mmol/L 28.2 Anion Gap (3-11) mmol/L 9.8 BUN (7-18) mg/dL 11 Creatinine (0.55-1.02) mg/dL 1.0 Est GFR (CKD-EPI 2020) (mL/min/1.73m2) 82.71 Glucose (74-106) mg/dL 115 H Calcium (8.5-10.1) mg/dL 9.0 Total Bilirubin (0.2-1.0) mg/dL 0.9 Conjugated Bilirubin (0.0-0.2) mg/dL 0.2 AST (15-37) U/L 13 L ALT (14-59) U/L 22 Alkaline Phosphatase (46-116) U/L 82 Total Protein (6.4-8.2) g/dL 7.7 Albumin (3.4-5.0) g/dL 3.9 Urine Color (Yellow) Dark Yellow Urine Clarity (Clear) Sl Cloudy Urine pH (5-8) 6.0 Ur Specific [place] (1.005-1.025) >= 1.030 H Urine Protein (Negative) mg/dL 30 H Urine Ketones (Negative) mg/dL Trace H Urine Blood (Negative) Small H Urine Nitrite (Negative) Negative Urine Bilirubin (Negative) Small H Urine Urobilinogen (Up to 0.2) mg/dL 1.0 H Ur Leukocyte Esterase (Negative) Negative Urine RBC (0-2) HPF 3-5 H Urine WBC (0-5) HPF 3-5 Ur Epithelial Cells (Negative) HPF Many Urine Crystals (Negative) HPF Negative Urine Bacteria (Negative) HPF Few Urine Casts (Negative) LPF Negative Urine Mucus (Negative) Trace Ur Culture Indicated? No/Sq. Contamination Urine Glucose (Negative) mg/dL Negative POC- Test(urine) Negative Medical Decision Making Patient presents with intractable nausea vomiting and diarrhea symptoms most consistent with gastroenteritis. Will check basic labs including CBC CMP UA. Will provide 1 L of normal saline with 10 mg of IV Compazine for symptoms. She is also given pantoprazole 40 mg IV push. After receiving the Compazine she feels jittery will provide Benadryl 25 mg for her symptoms which she responded well to. She has had no vomiting or diarrhea since being in the department. Denis james is given a second liter of fluid and tolerated a p.o. challenge. She is feeling improved enough for discharge to home. She will be dispensed Zofran 4 mg ODT tabs for home use should follow-up with primary care provider. Urinalysis is reviewed and sample is contaminated but not consistent with urinary tract infection with negative nitrites and leukocyte Estrace. Also noted to have a low potassium at 3.4 advised increased potassium in her diet and this is secondary to GI losses Medical Records Medical records reviewed: Yes I reviewed the patient's medical records. Lab Data Lab results reviewed: Yes I reviewed the patient's lab results. Lab results narrative: Laboratory Results - last 24 hr 11/23/23 11/23/23 20:30 20:42 WBC 7.92 RBC 5.63 H Hgb 15.2 Hct 45.0 MCV 80 MCH 27.0 MCHC 33.8 RDW 12.9 Plt Count 289 MPV 9.4 Immature Gran % 0.3 Neutrophils % 83.7 Lymphocytes % 6.6 Monocytes % 8.2 Eosinophils % 0.9 Basophils % 0.3 Nucleated RBC % 0.0 Absolute Neutrophils 6.64 Absolute Lymphocytes 0.52 L Absolute Monocytes 0.65 Absolute Eosinophils 0.07 Absolute Basophils 0.02 Sodium 140 Potassium 3.4 L Chloride 102 Carbon Dioxide 28.2 Anion Gap 9.8 BUN 11 Creatinine 1.0 Est GFR (CKD-EPI 2020) 82.71 Glucose 115 H Calcium 9.0 Total Bilirubin 0.9 Conjugated Bilirubin 0.2 AST 13 L ALT 22 Alkaline Phosphatase 82 Total Protein 7.7 Albumin 3.9 Urine Color Dark Yellow Urine Clarity Sl Cloudy Urine pH 6.0 Ur Specific [place] >= 1.030 H Urine Protein 30 H Urine Ketones Trace H Urine Blood Small H Urine Nitrite Negative Urine Bilirubin Small H Urine Urobilinogen 1.0 H Ur Leukocyte Esterase Negative Urine RBC 3-5 H Urine WBC 3-5 Ur Epithelial Cells Many Urine Crystals Negative Urine Bacteria Few Urine Casts Negative Urine Mucus Trace Ur Culture Indicated? No/Sq. Contamination Urine Glucose Negative Quality:[facility] Health Related Social Needs: No Data to Display PFSH All Active Problems (Updated 11/23/23 @ 22:26 by Marleni Estrada NP) Gastroenteritis (Acute) Abnormal uterine bleeding (AUB) (Acute) 2021. with DepoProvera. 2022. With nexplanon. resolved when stopped Nexplanon Contraception (Acute) 2021. DepoProvera. 01/2023. Nexplanon 09/2023. Nexplanon removed. Pt will use condoms. Peroneal tendonitis of right lower leg (Acute) Closed left cuboid fracture (Acute) Abrasion of knee (Acute) Contusion of knee (Acute) Menstrual cramp (Acute) Scoliosis (and kyphoscoliosis), idiopathic (Acute) Neck pain on left side (Acute) Medical History (Updated 11/23/23 @ 22:26 by Marleni Estrada NP) Nexplanon removal Pediatric body mass index (BMI) of greater than or equal to 95th percentile for age (07/31/16) Anxiety Back pain Chronic serous otitis media (08/19/13) Wears glasses Visual problems wears glasses for reading Surgical History [place] teeth extracted Status post myringotomy with tube placement of both ears (07/25/14) Myringotomy w/ PE (pressure equalizing) tubes X 3 Family History Mother No problems noted. Father Essential hypertension Hyperlipidemia Mental disorder anxiety Ulcerative colitis Asthma Grandparent Diabetes T2 DM MGF Heart disease Other Diabetes MGGM, pat cousin Asthma P uncle and aunt Social History Smoking/Tobacco Use Status: Never Smoking risk assessment performed?: Yes Alcohol Intake: never Drug use: Never Substance use type: does not use Education Level: other Details: taking a gap year before college Pets and animals: Yes Pets and animals: cat(s), dog(s) and fish Sexually active: No Current gender identity: female Seatbelt use: always Do you feel safe at home: Yes Do you feel safe in your relationship?: Yes History History 0 Para Hx # Term Pregnancies Multiple births Hx # Pregnancies Ectopic pregnancies AB induced Hx Number of Living Children AB spontaneous Discharge Plan Disposition Patient Disposition: Home Condition: Improving Discharge Details Clinical Impression: Gastroenteritis Primary Care Provider: CONCHITA MADRIGAL ED Provider: Marleni Estrada Home Meds and New Rx's Prescriptions: New Ondansetron Odt, 3 Tabs/Btl [Zofran Odt, 3 Tabs/Btl] 4 mg PO DISPENSE Qty: 0 0RF Continued Excedrin Migraine 250-250-65 mg tablet 1 tab PO ONCE Patient Comments: does not use 07/30/23 hydroxyzine HCl 25 mg tablet 25 mg PO QHS Discharge Instructions Instructions: Gastroenteritis (ED) Additional Instructions: Clear liquids advance diet as tolerated Can use ondansetron as directed if needed for nausea or vomiting. Referrals: CONCHITA MADRIGAL, [facility] [Primary Care Provider] -
[2023-11-23 22:28] VITALS: BP 120/65; PULSE 90; RESP 18; O2SAT 100
[2023-11-23] MEDS: Ondansetron O.D.T. 4 MG TABEF, 3 TABS/BTL PO (22:38)
[2023-11-23 22:39] VITALS: BP 119/69; PULSE 89; RESP 18; O2SAT 99
== END 2023-11-23 22:39 | disposition home or self-care (01) ==
PROVIDERS: Emergency Provider Nurse Practitioner Acute Care; PCP Nurse Practitioner Family
DX: K52.9 Noninfective gastroenteritis and colitis, unspecified (principal); R50.9 Fever, unspecified; Z79.82 Long term (current) use of aspirin
CPT/HCPCS: 80048; 80076; 81025; 96361; 96374; 96375; 99283; 81003; 81015; 85025; J0780; J1200; J2470

== ENCOUNTER 2023-12-24 14:04 | Emergency (ER) | payer OTHER, SELFPAY ==
[2023-12-24 14:12] VITALS: BP 140/81; PULSE 83; RESP 16; TEMP 36.7; O2SAT 98
[2023-12-24 14:18] VITALS: BP 140/81; PULSE 83; RESP 16; TEMP 36.7; O2SAT 98
--- NOTE | 2024-01-13 10:11 | W.ED.GENAD ---
Discharge Plan Disposition Patient Disposition: Home Condition: Stable Discharge Details Clinical Impression: Otitis media, Bronchitis Primary Care Provider: CONCHITA MADRIGAL ED Provider: Daysi Vazquez Home Meds and New Rx's Prescriptions: New cefdinir 300 mg capsule 300 mg PO BID Qty: 10 0RF albuterol sulfate [Proventil HFA] 90 mcg/actuation HFA aerosol inhaler 2 puff inhalation Q6H PRNQty: 6.7 0RF Discharge Instructions Instructions: Ear Infection (ED), Acute Bronchitis (ED) Additional Instructions: Take antibiotic as prescribed Albuterol 2 puffs every 4-6 hours as needed for cough, wheeze, shortness of breath Yogurt daily while on the antibiotic Recommend decongestant like mucus Mucinex, hot tea, honey and lemon Return earlier should you have new or worsening complaints Referrals: CONCHITA MADRIGAL, [employer] [facility] [Primary Care Provider] - Discharge Data Discharge Date/Time-TO BE ENTERED AT DEPARTURE: 12/24/23 15:10 HPI General Date/Time Provider Initiated Documentation: 12/24/23 14:17. HPI Narrative: This 18-year-old female presents with cough, congestion left ear pain, and sore throat for the past week. Predominantly presents secondary to left ear pain. Denies any fever or chills. Denies significant shortness of breath. States she has a persistent cough. Denies any chance of . Related Data Home Medications Medication Instructions Recorded Confirmed albuterol sulfate 90 mcg/actuation 2 puff inhalation Q6H PRN #6.7 12/24/23 aerosol inhaler (Proventil HFA) grams cefdinir 300 mg capsule 300 mg PO BID #10 caps 12/24/23 Previous Rx's Medication Instructions Recorded albuterol sulfate 90 mcg/actuation 2 puff inhalation Q6H PRN #6.7 12/24/23 aerosol inhaler (Proventil HFA) grams cefdinir 300 mg capsule 300 mg PO BID #10 caps 12/24/23 Allergies Allergy/AdvReac Type Severity Reaction Status Date / Time amoxicillin Allergy Mild RASH Verified 12/24/23 14:15 General Stated Complaint: GenMedical LIZZY: 4 Course Vital Signs Vital signs: Vital Signs Temperature 36.7 C 12/24/23 14:12 Pulse 83 12/24/23 14:12 Respiratory Rate 16 12/24/23 14:12 Blood Pressure 140/81 12/24/23 14:12 Pulse Oximetry 98 12/24/23 14:12 Temperature 36.7 C 12/24/23 14:18 Temperature Source Temporal Artery Scan 12/24/23 14:18 Pulse 83 12/24/23 14:18 Respiratory Rate 16 12/24/23 14:18 Respiratory Effort Normal, Non-Labored 12/24/23 14:22 Respiratory Depth Normal 12/24/23 14:22 Respiratory Pattern Normal 12/24/23 14:22 Blood Pressure 140/81 12/24/23 14:18 Pulse Oximetry 98 12/24/23 14:18 Oxygen Delivery Method Room Air 12/24/23 14:18 Oxygen Flow Rate 0 12/24/23 14:18 Pain Level 0 12/24/23 14:18 Medical Decision Making 18-year-old female presenting with upper respiratory symptoms and left ear pain, left ear with fluid noted behind TM and erythematous TM consistent with likely otitis media, no mastoid tenderness, alert and oriented x 4, no drainage from the canal, right TM without any abnormality, rhinorrhea noted, no maxillary sinus tenderness, lungs clear to auscultation bilaterally, persistent bronchospastic cough noted, no acute distress, no hypoxia, Suspect patient has had upper respiratory infection with subsequent ear infection, will initiate antibiotics, cefdinir for otitis media Will give patient an inhaler for Respiratory symptoms Afebrile and nontoxic Return precautions reviewed and patient expressed understanding, recheck in 2 days recommended with PCP Quality:SDOH Health Related Social Needs: No Data to Display PFSH All Active Problems (Updated 12/24/23 @ 14:37 by FOLR Asif) Bronchitis (Acute) Otitis media (Acute) Abnormal uterine bleeding (AUB) (Acute) 2021. with DepoProvera. 2022. With nexplanon. resolved when stopped Nexplanon Contraception (Acute) 2021. DepoProvera. 01/2023. Nexplanon 09/2023. Nexplanon removed. Pt will use condoms. Peroneal tendonitis of right lower leg (Acute) Closed left cuboid fracture (Acute) Abrasion of knee (Acute) Contusion of knee (Acute) Menstrual cramp (Acute) Scoliosis (and kyphoscoliosis), idiopathic (Acute) Neck pain on left side (Acute) Medical History (Updated 12/24/23 @ 14:37 by FLOR Asif) Nexplanon removal Pediatric body mass index (BMI) of greater than or equal to 95th percentile for age (07/31/16) Anxiety Back pain Chronic serous otitis media (08/19/13) Wears glasses Visual problems wears glasses for reading Surgical History [place] teeth extracted Status post myringotomy with tube placement of both ears (07/25/14) Myringotomy w/ PE (pressure equalizing) tubes X 3 Family History Mother No problems noted. Father Essential hypertension Hyperlipidemia Mental disorder anxiety Ulcerative colitis Asthma Grandparent Diabetes T2 DM MGF Heart disease Other Diabetes MGGM, pat cousin Asthma P uncle and aunt Social History Smoking/Tobacco Use Status: Never Smoking risk assessment performed?: Yes Alcohol Intake: never Drug use: Never Substance use type: does not use Education Level: other Details: taking a gap year before college Pets and animals: Yes Pets and animals: cat(s), dog(s) and fish Sexually active: No Current gender identity: female Seatbelt use: always Do you feel safe at home: Yes Do you feel safe in your relationship?: Yes History History 0 Para Hx # Term Pregnancies Multiple births Hx # Pregnancies Ectopic pregnancies AB induced Hx Number of Living Children AB spontaneous
== END 2023-12-24 15:10 | disposition home or self-care (01) ==
PROVIDERS: Emergency Provider Physician Assistant; PCP Nurse Practitioner Family
DX: H92.02 Otalgia, left ear (principal); R05.1 Acute cough; R07.0 Pain in throat; J40 Bronchitis, not specified as acute or chronic; H66.92 Otitis media, unspecified, left ear
CPT/HCPCS: 99283

== ENCOUNTER 2024-03-02 21:57 | Outpatient (REF) | payer OTHER, SELFPAY | END 2024-03-02 21:58 | disposition home or self-care (01) | LOC: LBN 21:57 | PROVIDERS: PCP Nurse Practitioner Family; Visit Provider Physician Assistant | DX: N39.0 Urinary tract infection, site not specified (principal); B96.89 Other specified bacterial agents as the cause of diseases classified elsewhere | CPT/HCPCS: 87077; 87086; 87186 ==

== ENCOUNTER 2025-04-25 17:41 | Outpatient (REF) | payer SELFPAY ==
[2025-04-26 12:31] LABS: Chlamydia Result Negative (Negative); GC Result Negative (Negative)
== END 2025-04-25 17:42 | disposition home or self-care (01) ==
LOC: LBN 17:41
PROVIDERS: PCP Nurse Practitioner Family; Visit Provider Obstetrics & Gynecology
DX: Z12.4 Encounter for screening for malignant neoplasm of cervix (principal)
CPT/HCPCS: 87491; 87591; 88142